=== PATIENT | female | born 1945 | race Caucasian/White ===

== ENCOUNTER 2020-06-11 13:14 | Outpatient (CLI) | payer MEDICARE, SELFPAY ==
--- NOTE | 2020-06-11 13:20 | ECHO_ITS ---
Patient Info Name: Louise Leal Age: 75 years : 1945 Gender: Female Ht: 63 in Wt: 236 lbs BSA: 2.24 m2 HR: 110 bpm BP: 133 / 82 mmHg Heart Rhythm: Sinus Rhythm Technical Quality: Good Exam Date: 06/11/2020 1:36 PM Exam Location: [facility] Pulmonary Patient Status: Outpatient Admit Date: 06/11/2020 Staff Ordering Physician: Anurag Conde DO Program Counselor: Andre Mitchell RDCS Attending Provider: Anurag Conde DO Referring Physician: Elton KULKARNI; Exam Type: CA echo doppler color flow Study Info Indications I50.22 - Chronic systolic (congestive) heart failure Complete two-dimensional, color flow and Doppler transthoracic echocardiogram is performed. History/Risk Factors Chronic systolic heart failure. Summary 1. Complete two-dimensional, color flow and Doppler transthoracic echocardiogram is performed. 2. Left ventricular chamber dimension is mildly enlarged. 3. Left ventricular systolic function is moderately reduced, estimated at 40-45%. 4. The left ventricular diastolic function is grade I diastolic dysfunction. 5. E/e' 9 is minimally elevated. 6. Left atrial chamber dimension is mildly enlarged. 7. There is trace tricuspid valve regurgitation. 8. No pulmonary hypertension, estimated pulmonary arterial systolic pressure is 28 mmHg. Left Ventricle E/e' 9 is minimally elevated. Left ventricular chamber dimension is mildly enlarged. Left ventricular systolic function is moderately reduced, estimated at 40-45%. The left ventricular diastolic function is grade I diastolic dysfunction. Right Ventricle Right ventricular chamber dimension is normal. Right ventricular systolic function is normal. Left Atria Left atrial chamber dimension is mildly enlarged. Right Atria Right atrial chamber dimension is normal. Aortic Valve The aortic valve is trileaflet. There is no aortic valve stenosis. There is no aortic valve regurgitation. Pulmonic Valve There is no pulmonic regurgitation. Mitral Valve There is no mitral valve stenosis. There is no mitral valve regurgitation. Tricuspid Valve There is trace tricuspid valve regurgitation. No pulmonary hypertension, estimated pulmonary arterial systolic pressure is 28 mmHg. Pericardium/Pleural There is no pericardial effusion. Inferior Vena Cava Normal inferior vena cava with >50% collapse upon inspiration consistent with normal right atrial pressure, 5 mmHg. Aorta The aortic root size at the sinus of Valsalva is normal. Left Ventricular Outflow Tract Name Value Normal LVOT 2D LVOT Diameter 2.0 cm LVOT Doppler LVOT Peak Gradient 4 mmHg LVOT Mean Gradient 2 mmHg LVOT VTI 21 cm LVOT VTI/AV VTI Ratio 0.7 LVOT Stroke Volume 65 ml LVOT CO 3.7 l/min LVOT CI 1.6 l/min/m2 Mitral Valve Name Value
== END 2020-06-11 13:15 | disposition home or self-care (01) ==
PROVIDERS: PCP Internal Medicine; Visit Provider Internal Medicine Cardiovascular Disease
DX: I50.22 Chronic systolic (congestive) heart failure (principal)
CPT/HCPCS: 93306

== ENCOUNTER 2021-05-20 10:09 | Outpatient (CLI) | payer MEDICARE, SELFPAY ==
--- NOTE | 2021-05-20 10:35 | ECHO_ITS ---
Patient Info Name: Louise Leal Age: 76 years : 1945 Gender: Female Ht: 63 in Wt: 230 lbs BSA: 2.21 m2 HR: 66 bpm BP: 101 / 57 mmHg Technical Quality: Good Exam Date: 05/20/2021 10:58 AM Exam Location: [facility] Pulmonary Patient Status: Outpatient Admit Date: 05/20/2021 Staff Ordering Physician: Anurag Conde DO Senior Software Qa Analyst: Porsche Ordaz RDCS Attending Provider: Anurag Conde DO Referring Physician: Elton KULKARNI; Exam Type: CA echo doppler color flow Study Info Indications - chronic systolic congestive heart failure Complete two-dimensional, color flow and Doppler transthoracic echocardiogram is performed. Summary 1. Complete two-dimensional, color flow and Doppler transthoracic echocardiogram is performed. 2. Left ventricular chamber dimension is normal. 3. Left ventricular systolic function is mildly reduced, estimated at 45-50%. 4. There is mildly increased left ventricular wall thickness. 5. The left ventricular diastolic function is grade I diastolic dysfunction. 6. E/e' 9 is minimally elevated. 7. Left atrial chamber dimension is mildly enlarged. 8. There is mild tricuspid valve regurgitation. 9. No pulmonary hypertension, estimated pulmonary arterial systolic pressure is 27 mmHg. 10. There is trivial pericardial effusion. Left Ventricle E/e' 9 is minimally elevated. Left ventricular chamber dimension is normal. Left ventricular systolic function is mildly reduced, estimated at 45-50%. There is mildly increased left ventricular wall thickness. The left ventricular diastolic function is grade I diastolic dysfunction. Right Ventricle Right ventricular chamber dimension is normal. Right ventricular systolic function is normal. Left Atria Left atrial chamber dimension is mildly enlarged. Right Atria Right atrial chamber dimension is normal. Aortic Valve The aortic valve is trileaflet. There is no aortic valve stenosis. There is no aortic valve regurgitation. Pulmonic Valve There is no pulmonic regurgitation. Mitral Valve There is no mitral valve stenosis. There is no mitral valve regurgitation. Tricuspid Valve There is mild tricuspid valve regurgitation. No pulmonary hypertension, estimated pulmonary arterial systolic pressure is 27 mmHg. Pericardium/Pleural There is trivial pericardial effusion. Inferior Vena Cava Normal inferior vena cava with >50% collapse upon inspiration consistent with normal right atrial pressure, 5 mmHg. Aorta The aortic root size at the sinus of Valsalva is normal. Left Ventricular Outflow Tract Name Value Normal LVOT 2D LVOT Diameter 2.0 cm LVOT Doppler LVOT Peak Gradient 6 mmHg LVOT Mean Gradient 4 mmHg LVOT VTI 25 cm LVOT VTI/AV VTI Ratio 0.9 LVOT Stroke Volume 75 ml LVOT CO 16.5 l/min LVOT CI 7.4 l/min/m2 Pulmonic Valve Name
== END 2021-05-20 10:10 | disposition home or self-care (01) ==
LOC: ANHCARD 10:10
PROVIDERS: PCP Internal Medicine; Visit Provider Internal Medicine Cardiovascular Disease
DX: I50.22 Chronic systolic (congestive) heart failure (principal); I36.1 Nonrheumatic tricuspid (valve) insufficiency
CPT/HCPCS: 93306

== ENCOUNTER 2022-05-24 08:30 | Outpatient (CLI) | payer MEDICARE, SELFPAY ==
--- NOTE | 2022-05-24 08:39 | ECHO_ITS ---
Patient Info Name: Louise Leal Age: 77 years : 1945 Gender: Female Ht: 63 in Wt: 218 lbs BSA: 2.15 m2 HR: 67 bpm BP: 113 / 85 mmHg Technical Quality: Fair Exam Date: 05/24/2022 9:02 AM Exam Location: [facility] Pulmonary Patient Status: Outpatient Admit Date: 05/24/2022 Staff Ordering Physician: Anurag Conde DO Nut Culler: Gregoria Manrique RDCS Attending Provider: Anurag Conde DO Referring Physician: Elton KULKARNI; Exam Type: CA echo doppler color flow Study Info Indications I50.22 - Chronic systolic (congestive) heart failure Complete two-dimensional, color flow and Doppler transthoracic echocardiogram is performed. Summary 1. Complete two-dimensional, color flow and Doppler transthoracic echocardiogram is performed. 2. Left ventricular chamber dimension is normal. 3. Left ventricular systolic function is mildly reduced, estimated at 45-50%. 4. Left ventricular septal wall motion is abnormal with septal motion related to bundle branch block. 5. The left ventricular diastolic function is grade I diastolic dysfunction. 6. E/e' 12 is mildly elevated. 7. Global longitudinal strain is abnormal at -15.6%. 8. No pulmonary hypertension, estimated pulmonary arterial systolic pressure is 34 mmHg. Left Ventricle E/e' 12 is mildly elevated. Global longitudinal strain is abnormal at -15.6%. Left ventricular chamber dimension is normal. Left ventricular systolic function is mildly reduced, estimated at 45-50%. Left ventricular septal wall motion is abnormal with septal motion related to bundle branch block. The left ventricular diastolic function is grade I diastolic dysfunction. Right Ventricle Right ventricular systolic function is normal and with normal TAPSE 2.9 cm. Right ventricular chamber dimension is normal. Left Atria Left atrial chamber dimension is normal. Right Atria Right atrial chamber dimension is normal. Aortic Valve The aortic valve is trileaflet. There is no aortic valve stenosis. There is no aortic valve regurgitation. Pulmonic Valve There is no pulmonic regurgitation. Mitral Valve There is no mitral valve stenosis. There is no mitral valve regurgitation. Tricuspid Valve There is no tricuspid valve regurgitation. No pulmonary hypertension, estimated pulmonary arterial systolic pressure is 34 mmHg. Pericardium/Pleural There is no pericardial effusion. Inferior Vena Cava Normal inferior vena cava with >50% collapse upon inspiration consistent with normal right atrial pressure, 5 mmHg. Aorta The aortic root size at the sinus of Valsalva is normal. Left Ventricular Outflow Tract Name Value Normal LVOT 2D LVOT Diameter 2.0 cm LVOT Doppler LVOT Peak Gradient 7 mmHg LVOT Mean Gradient 4 mmHg LVOT VTI 28 cm LVOT VTI/AV VTI Ratio 0.9 LVOT Stroke Volume 86 ml LVOT CO 5.3 l/min LVOT CI 2.5 l/min/m2 Pulmonic Valve
== END 2022-05-24 08:31 | disposition home or self-care (01) ==
LOC: ANHCARD 08:35
PROVIDERS: PCP Internal Medicine; Visit Provider Internal Medicine Cardiovascular Disease
DX: I50.22 Chronic systolic (congestive) heart failure (principal)
CPT/HCPCS: 93306

== ENCOUNTER 2023-05-17 16:24 | Inpatient (IN) | payer MEDICARE, SELFPAY ==
[2023-05-17] VITALS (16 sets, daily range): BP systolic 91–129; BP diastolic 59–80; PULSE 69–92; RESP 12–22; TEMP 36.4–36.5; O2SAT 90–100
--- NOTE | ~2023-05-17 | US_ITS ---
EXAMINATION: US renal BI DATE: 05/18/2023 11:36 INDICATION: Acute kidney injury. TECHNIQUE: Multiple ultrasound grayscale images of the kidneys were obtained. COMPARISON: None. FINDINGS: The right kidney measures 9.8 x 4.5 x 5.2 cm. The left kidney measures 9.8 x 4.4 x 5.1 cm. The kidney s demonstrate normal parenchymal echogenicity. There is no hydronephrosis. The bladder is decompresse d by a Forte catheter. IMPRESSION: 1. Normal kidney sizes. No hydronephrosis. Reviewed, dictated and finalized at location A.
--- NOTE | ~2023-05-17 | US_ITS ---
EXAMINATION: US venous doppler [facility] DATE: 05/17/2023 21:20 INDICATION: DVT . TECHNIQUE: Grayscale images without and with compression and Doppler images of the bilateral lower ex tremity veins were obtained. COMPARISON: None FINDINGS: The left common femoral vein, profunda (deep) femoral vein, femoral vein, popliteal vein, peroneal ve in, posterior tibial veins, and gastrocnemius vein are patent. Prior greater saphenous vein ablation, no abnormality detected in the proximal residual portion of the greater saphenous vein. The right common femoral vein, profunda (deep) femoral vein, femoral vein, popliteal vein, peroneal vein, posterior tibial veins, gastrocnemius vein, and greater saphenous vein are patent. IMPRESSION: Patent bilateral lower extremity veins. No evidence of deep venous thrombosis. Reviewed, dictated and finalized at location K.
--- NOTE | ~2023-05-17 | XR_ITS ---
EXAMINATION: XR chest 2V Exam Date/Time: 05/17/2023 16:50 CDT HISTORY: dyspnea Comparison: 09/13/2010. RESULT: Lines, tubes, and devices: None. Lungs and pleura: Mild diffuse reticular opacities. Minimal streaky bibasilar scar/atelectasis. Cardiomediastinal silhouette: Stable. Other: No acute osseous or upper abdominal finding. IMPRESSION: Mild interstitial edema. Reviewed, dictated and finalized at location K. IMPRESSION: Mild interstitial edema.
--- NOTE | 2023-05-17 16:29 | ECG_ITS ---
Measurements Intervals [place] Rate: 75 P: 38 NH: 182 QRS: -40 QRSD: 154 T: 109 QT: 426 QTc: 476 Interpretive Statements SINUS RHYTHM MARKED LEFT AXIS DEVIATION [QRS AXIS < -30] LEFT BUNDLE BRANCH BLOCK [120+ ms QRS DURATION, 80+ ms Q/S IN V1/V2, 85+ ms R IN I/aVL/V5/V6] ABNORMAL ECG NO PREVIOUS ECG AVAILABLE FOR COMPARISON Electronically Signed On 05-18-2023 9:16:44 CDT by Juan R Joaquin M.D.
[2023-05-17 16:55] LABS: Basophils Percent Auto 0.2 % (0.2-1.2); Eosinophils Absolute Auto 0.2 K/mm3 (0-0.3); Eosinophils Percent Auto 3.2 % (0-4.4); Hematocrit 33.1 % (37.0-47.0); Immature Granulocyte Absolute 0.02 K/mm3 (0.00-0.031); Immature Granulocyte Percent A 0.4 % (0-0.5); Lymphocytes Absolute Auto 0.72 K/mm3 (0.9-3.2); Lymphocytes Percent Auto 15.6 % (18.3-44.2); Mean Corpuscular HGB Conc 33.2 g/dl (32-36); Mean Corpuscular Hemoglobin 32.1 pg (26-34); Mean Corpuscular Volume 96.5 fl (80-100); Mean Platelet Volume 10.1 fl (7.4-10.4); Monocytes Absolute Auto 0.6 K/mm3 (0.1-0.6); Monocytes Percent Auto 12.6 % (2.6-8.5); Neutrophils Absolute Auto 3.1 K/mm3 (1.3-6.7); Platelet Count Result 182 k/mm3 (150-375); Red Blood Count 3.43 M/mm3 (4.2-5.4); Red Cell Distribution Width 12.8 % (11.5-14.5); White Blood Count 4.6 K/mm3 (4.5-10.0)
[2023-05-17 17:05] LABS: Alanine Aminotransferase 20 U/L (6-35); Albumin Level 4.1 g/dL (3.5-5.1); Alkaline Phosphatase 56 U/L (38-126); Anion Gap 9 mmol/L (8-16); Aspartate Amino Transferase 22 U/L (14-36); Bilirubin,Total 0.9 mg/dL (0.2-1.3); Blood Urea Nitrogen 71 mg/dL (7-17); Calcium 8.8 mg/dL (8.4-10.2); Carbon Dioxide 25 mmol/L (22-30); Chloride 92 mmol/L (98-107); Estimated Glomerular Filt Rate 18; Glucose 123 mg/dL (65-110); Potassium 3.5 mmol/L (3.4-5.0); Sodium 126 mmol/L (137-145)
[2023-05-17 17:17] LABS: NT Pro B Type Natriuretic Pept 483 pg/mL (19.9-100); Troponin I < 0.012 ng/mL (0.000-0.034)
[2023-05-17 17:20] LABS: Partial Thromboplastin Time 26.2 SECONDS (22.3-36.8); Prothrombin Time 13.1 Seconds (11.1-14.7)
--- NOTE | 2023-05-17 18:47 | ED.GENADULT ---
HPI - General Adult General Chief complaint: Unspecified Stated complaint: BLE edema/low 02 Time Seen by Provider: 05/17/23 18:08 History of Present Illness HPI narrative: Patient is a 78-year-old female with a history of CHF, hyperlipidemia, hypertension presenting with leg swelling. Patient states that she noticed that her legs were becoming increasingly swollen approximately 4 to 5 days ago. States that she takes Bumex every morning and normally is a significant increase in urination shortly after taking it. States that for the last several days she has not been urinating nearly as much as normal. States that she has been taking double her Bumex in the afternoon the last several days without significant urinary output. States that her legs have been increasingly swollen and a home health nurse told her to come in for evaluation today. She denies any chest pain. She denies significant dyspnea. She does complain of generalized weakness. No further complaints. Related Data Home Medications Medication Instructions Recorded Confirmed omega [id number]-fish oil 1,000 mg 2 cap PO DAILY 09/25/19 05/17/23 (120 mg-180 mg) capsule (Fish Oil) docusate sodium 100 mg capsule 100 mg PO DAILY 09/21/21 05/17/23 (Colace) Allergies Allergy/AdvReac Type Severity Reaction Status Date / Time Sulfa (Sulfonamide AdvReac Rash Verified 05/17/23 18:25 Antibiotics) Review of Systems Review of Systems: All systems reviewed & are unremarkable except as noted in HPI and below [facility] Past Medical History Medical History Arthritis CAD (coronary artery disease) Chronic kidney disease, stage IV (severe) Chronic systolic heart failure Elevated lipids Essential (primary) hypertension Gastroesophageal reflux disease Inflammatory arthritis LBBB (left bundle branch block) ROBERT on CPAP Other hyperlipidemia Postmenopausal Screening for breast cancer Skin lesion Surgical History Surgical History Hx of knee surgery Family History Family History (Updated 05/17/23 @ 23:01 by Jose Eduardo Lorenzo RN) Father Diabetes mellitus Family history of diabetes mellitus in first degree relative Social History Social History Smoking packs per day: 1 Smoking cigarettes per day: 20.0 Years smoked: 3 Smoking pack-years: 3.00 Smoking status: Former smoker Tobacco type: cigarettes Second hand tobacco smoke exposure: No Alcohol intake: former Substance use: never Lack of Transportation: No Lack of Food: Never True Current Housing: I Have Housing Concerned About Future Housing: No Difficulty Paying Gas/Electric Bills: No Difficulty Paying for Meds: No Currently Unemployed: No Education: Grade School Difficulty w/ Childcare or Family Care: No Living arrangements: with family Occupation/Education: retired Gender identity (if verbalized by the patient): Female Spiritual care concerns: No Exam Narrative: GENERAL: Well-appearing, well-nourished, and in no acute distress. HEAD: Normocephalic, atraumatic. EYES: PERRLA and EOMI. ENT: Nares clear, no rhinorrhea or epistaxis. Mucous membranes moist. NECK: Supple. CHEST: Clear to auscultation. No respiratory distress. HEART: Regular rate and rhythm. Normal peripheral pulses. ABDOMEN: Soft, nontender, nondistended EXTREMITIES: Normal range of motion. 3+ pitting edema up to her thighs SKIN: Warm, dry, no rash. NEURO: No focal deficits. Alert and oriented x3. PSYCH: Normal mood and affect. Course Vital Signs Vital signs: Vital Signs Temperature 97.7 F 05/17/23 16:26 Pulse Rate 78 05/17/23 16:26 Respiratory Rate 18 05/17/23 16:26 Blood Pressure 129/59 L 05/17/23 16:26 Pulse Oximetry 97 05/17/23 16:26 Oxygen Delivery Room Air 05/17/23 16:26 Temperature
[2023-05-17] MEDS: BUMETANIDE INJ 1 MG/4 ML VIAL 2 MG IV PUSH (19:16)
[2023-05-17 20:04] LABS: Troponin I < 0.012 ng/mL (0.000-0.034)
--- NOTE | 2023-05-17 20:05 | PM.IMHP ---
H&P: HPI History of Present Illness Date/Time: 05/17/23 20:05 Chief Complaint: bilateral lower extremity swelling Narrative: This is 78-year-old female with past medical history significant for coronary artery disease, chronic kidney disease, chronic systolic heart failure, hypertension, GERD, obstructive sleep apnea on CPAP, obesity. patient presents to the emergency room due to bilateral lower extremity swelling worsening now for the last week or so with blistering, patient decided to doubled her bumetanide daily taking 1 in the morning and 1 in the evening. Patient denies any PND, orthopnea, shortness of breath, cough, sputum production, chest pain, palpitations, dizziness, lightheadedness, syncope, near syncope, no nausea no vomiting no diarrhea no abdominal pain. Preliminary workup was significant for a creatinine of 2.6, sodium 126 chloride 92 BUN 71. A chest x-ray was reported as: EXAMINATION:? XR chest 2V Exam Date/Time:? 05/17/2023 16:50 CDT HISTORY: dyspnea ? Comparison:? 09/13/2010. RESULT: Lines, tubes, and devices:? None. Lungs and pleura:? Mild diffuse reticular opacities. Minimal streaky bibasilar scar/atelectasis. Cardiomediastinal silhouette:? Stable. Other:? No acute osseous or upper abdominal finding. ? IMPRESSION: Mild interstitial edema. EXAMINATION: US venous doppler LE DATE: 05/17/2023 21:20 INDICATION: DVT . TECHNIQUE: Grayscale images without and with compression and Doppler images of the bilateral lower extremity veins were obtained. COMPARISON: None FINDINGS: The left common femoral vein, profunda (deep) femoral vein, femoral vein, popliteal vein, peroneal vein, posterior tibial veins, and gastrocnemius vein are patent. Prior greater saphenous vein ablation, no abnormality detected in the proximal residual portion of the greater saphenous vein. The right common femoral vein, profunda (deep)? femoral vein, femoral vein, popliteal vein, peroneal vein, posterior tibial veins, gastrocnemius vein, and greater saphenous vein are patent. IMPRESSION: Patent bilateral lower extremity veins. No evidence of deep venous thrombosis. patient is been admitted for further evaluation management and treatment. Review of Systems Review of Systems: Worsening of a lateral lower extremity edema, blistering. Constitutional: Constitutional: Denies chills, Denies fatigue, Denies fever(s), Denies frequent falls, Denies malaise, Denies night sweats, Denies poor appetite and Denies weakness Eyes: Eyes: Denies change in vision ENT: Denies dysphagia, Denies vertigo, Denies dizziness and Denies odynophagia Cardiovascular: Cardiovascular: Denies chest pain, Reports leg edema, Denies radiating jaw, neck or arm pain, Denies dyspnea on exertion, Denies orthopnea and Denies paroxysmal nocturnal dyspnea Respiratory: Respiratory: Denies cough, Denies excessive phlegm production, Denies dyspnea and Denies wheezing Gastrointestinal: Gastrointestinal: Denies abdominal pain, Denies dyspepsia, Denies heartburn, Denies diarrhea, Denies nausea and Denies vomiting Genitourinary: Genitourinary: Denies dysuria Musculoskeletal: Musculoskeletal: Denies myalgias, Denies arthralgias, Denies joint swelling and Denies limited range of motion Integumentary/Breasts: Skin/Breast: Reports other ( Bilateral lower extremity blisters) Neurologic: Denies vertigo, Denies dizziness, Denies focal weakness, Denies Sensory deficit (Neuro) and Denies weakness Psychiatric: Psychiatric: Reports no additional psychiatric complaints and Reports as per HPI Endocrine: Endocrine: Denies cold intolerance, Denies fatigue, Denies flushing, Denies heat intolerance, Denies polyphagia, Denies polydipsia and Denies palpitations Hematologic/Lymphatic: Hematologic/Lymphatic: Reports no additional hematologic/lymphatic complaints and Reports as per HPI Allergic/Immunologic: Allergic/Immunologic: Reports no additional allergic/immunologic compl
[2023-05-17 20:47] LABS: Appearance Urine Clear (Clear); Bacteria Urine 3+ /hpf; Bilirubin Urine Negative (Negative); Blood Urine Negative (Negative); Color Urine Yellow (Yellow); Glucose Urine UA 1+ mg/dL (Negative); Ketones Urine Negative (Negative); Leukocyte Esterase Ur 1+ LEU/UL (Negative); Need Manual Microscopic Reviewed; Nitrate Urine Negative (Negative); Protein Urine Negative (Negative); RBC Urine 0-2 /hpf (0-2); Specific Grav Ur 1.006 (1.001-1.035); Squamous Epithelial Cell Urine None seen /hpf (Few); Urobilinogen Urine 0.2 mg/dL (<2.0); WBC Urine 0-5 /hpf; pH Urine 5.5 (5.0-9.0)
[2023-05-17 21:03] LABS: Add Urine Microscopic? YES
--- NOTE | 2023-05-17 23:03 | ADMGEN ---
This patient, Louise Leal, was admitted to [facility] Surg Room 302-01. Patient/family oriented to hospital policies and general routines including ID bracelet, bed and alarms, visiting hours, pain management, procedures, bathroom and other care routines, personal items, smoking policy, room service/diet, and visiting hours. Information on how to activate the Rapid Response Team has been discussed. Patient/Family are encouraged to report perceived risks to care and to ask questions if they do not understand what they are told or what they should do.
[2023-05-18] VITALS (11 sets, daily range): BP systolic 105–120; BP diastolic 54–65; PULSE 66–94; RESP 14–19; TEMP 35.7–37.1; O2SAT 90–95
--- NOTE | 2023-05-18 | ECHO_ITS ---
Patient Info Name: Louise Leal Age: 78 years : 1945 Gender: Female Ht: 63 in Wt: 224 lbs BSA: 2.18 m2 HR: 78 bpm BP: 110 / 54 mmHg Heart Rhythm: Sinus Rhythm Technical Quality: Good Exam Date: 05/18/2023 9:42 AM Exam Location: [facility] Card Pulmonary Patient Status: Inpatient Admit Date: 05/17/2023 Staff Ordering Physician: Suzi Alvarado MD Content Editor: Doroteo Pressley RDCS Attending Provider: Suzi Alvarado MD Referring Physician: Jenny RIVERA; Exam Type: CA echo doppler color flow Study Info Indications - LEG SWELLING Complete two-dimensional, color flow and Doppler transthoracic echocardiogram is performed. Summary 1. Complete two-dimensional, color flow and Doppler transthoracic echocardiogram is performed. 2. Left ventricular chamber dimension is normal. 3. Left ventricular systolic function is normal, estimated at 60-65%. 4. Left ventricular septal wall motion is abnormal with septal motion related to bundle branch block. 5. The left ventricular diastolic function is grade I diastolic dysfunction. 6. E/e' 14 is mildly elevated. 7. Left atrial chamber dimension is mildly enlarged. 8. There is trace tricuspid valve regurgitation. 9. No pulmonary hypertension, estimated pulmonary arterial systolic pressure is 38 mmHg. Left Ventricle E/e' 14 is mildly elevated. Left ventricular chamber dimension is normal. Left ventricular systolic function is normal, estimated at 60-65%. Left ventricular septal wall motion is abnormal with septal motion related to bundle branch block. The left ventricular diastolic function is grade I diastolic dysfunction. Right Ventricle Right ventricular systolic function is normal and with normal TAPSE 3.0 cm. Right ventricular chamber dimension is normal. Left Atria Left atrial chamber dimension is mildly enlarged. Right Atria Right atrial chamber dimension is normal. Aortic Valve The aortic valve is trileaflet. There is no aortic valve stenosis. There is no aortic valve regurgitation. Pulmonic Valve There is no pulmonic regurgitation. Mitral Valve There is no mitral valve stenosis. There is no mitral valve regurgitation. Tricuspid Valve There is trace tricuspid valve regurgitation. No pulmonary hypertension, estimated pulmonary arterial systolic pressure is 38 mmHg. Pericardium/Pleural There is no pericardial effusion. Inferior Vena Cava Normal inferior vena cava with >50% collapse upon inspiration consistent with normal right atrial pressure, 5 mmHg. Aorta The aortic root size at the sinus of Valsalva is normal. Left Ventricular Outflow Tract Name Value Normal LVOT 2D LVOT Diameter 1.8 cm LVOT Doppler LVOT Peak Gradient 4 mmHg LVOT Mean Gradient 2 mmHg LVOT VTI 31 cm LVOT VTI/AV VTI Ratio 1.0 LVOT Stroke Volume 78 ml LVOT CO 6.3 l/min LVOT CI 2.9 l/min/m2 Pulmonic Valve Name Value Normal
[2023-05-18 00:09] LABS: Troponin I < 0.012 ng/mL (0.000-0.034)
[2023-05-18] MEDS: SODIUM CHLORIDE 0.9% IV 1,000 ML 75 ML IV CONT (02:05)
--- NOTE | 2023-05-18 09:16 | PM.CNCAR ---
Assessment and Plan Assessment and plan (1) Swelling of both lower extremities: Code(s): M79.89 - Other specified soft tissue disorders Status: Acute Assessment and Plan: Mild only. (2) Chronic systolic heart failure: Code(s): I50.22 - Chronic systolic (congestive) heart failure Status: Acute Assessment and Plan: Appears euvolemic. Obtain echo. (3) CAD (coronary artery disease): Code(s): I25.10 - Atherosclerotic heart disease of [place] coronary artery without angina pectoris Status: Acute Assessment and Plan: Stable. (4) LBBB (left bundle branch block): Code(s): I44.7 - Left bundle-branch block, unspecified Status: Acute (5) Hypertension: Qualifiers: Hypertension type: primary hypertension Qualified Code(s): I10 - Essential (primary) hypertension Code(s): I10 - Essential (primary) hypertension Status: Acute Assessment and Plan: Stable. (6) Morbid obesity with BMI of 40.0-44.9, adult: Code(s): E66.01 - Morbid (severe) obesity due to excess calories; Z68.41 - Body mass index [BMI] 40.0-44.9, adult Status: Acute (7) Acute on chronic kidney failure: Code(s): N17.9 - Acute kidney failure, unspecified; N18.9 - Chronic kidney disease, unspecified Status: Acute Assessment and Plan: Nephrology consulted. Entresto, Spironolactone, Bumetanide all on hold for now. She is even receiving IVF at 75 ml/hr. History of Present Illness History of Present Illness Consult date/time: 05/18/23 09:16 Reason For Visit: chf exacerbation Narrative: Patient is a 78 yr old woman who is my regular cardiology patient presents to ER for edema of legs. She has a history of hypertension, dyslipidemia, CKD, ROBERT on CPAP, chronic systolic heart failure (EF was 30-35% as far back as 2015. Was not on beta larry or Jones inh/ARB until Sep 2018), LBBB, obesity, covid infection on 09/06/21. Reports she noted more edema of legs and blistering of right lower leg that she increased her Bumex to twice daily. However, she did not urinate as much with this increase and it concerned her so she came in to ER. She is limited at walking 1 block due to chronic back and hip pain with a walker or cane.? Denies chest pain.? Denies orthopnea, palpitations, dizziness. Cardiovascular Procedures Stretcher Operator:: Cath ([facility]: LAD mid 60-65% stenosis, LCx 20% mid.) - 08/26/2016 Echo/MUGA:: 05/10/22 Echo: EF 45-50%, grade I diastolic dysfunction (E/e' 12). 05/20/21 Echo: EF 45-50%, mild LVH, grade I diastolic dysfunction (E/e' 9), mild LAE, mild TR, trace pericardial effusion. 06/11/20 Echo: EF 40-45%, mild LVE, grade I diastolic dysfunction (E/e' 9), mild LAE, trace TR. Echo (EF 35-40%, mod LVE, mod LV systolic dysfunction, grade I diastolic dysfunction (E/E' 11), mild MR, trace TR, trace pericardial effusion.) - 01/02/2019 Echo ([facility]: EF 25-30%, septal hypokinesis, mod LVE, upper limit of normal LAE, trace-mild MR/PI, mild TR.) - 10/04/2018 Echo (Dr. Christianson progress note: EF 30-35%, anterior and septal hypokinesis.) - 08/2016 Electrophysiology:: EKG (Sinus rhythm, LBBB.) - 08/26/2016 Venous Duplex (No DVT of bilateral legs.) - 10/04/2018 Sleep Study (Severe ROBERT with desaturation to 63%.) - 01/08/2019 Stress Tests:: 09/11/21 Carotid duplex: <50% ICA bilateral. Review of Systems Review of Systems: All systems reviewed & are unremarkable except as noted in HPI and below Constitutional: Constitutional: Reports as per HPI, Denies chills and Denies fever(s) Cardiovascular: Cardiovascular: Reports as per HPI, Denies chest pain, Denies irregular heart rhythm, Reports leg edema and Denies lightheadedness Respiratory: Respiratory: Reports as per HPI and Denies dyspnea Gastrointestinal: Gastrointestinal: Reports as per HPI and Denies abdominal pain Genitourinary: Genitourinary: Reports as per HPI and Denies dysuria Musculoskeletal: Musculosk
[2023-05-18] MEDS: DOCUSATE SODIUM 100 MG CAPSULE PO (09:18)
[2023-05-18] MEDS: ROSUVASTATIN 10 MG TABLET BY MOUTH (09:18)
[2023-05-18] MEDS: carvediloL 6.25 MG TABLET BY MOUTH ×2 (09:19→21:10)
[2023-05-18] MEDS: PANTOPRAZOLE 40 MG TABLET PO (09:19)
[2023-05-18] MEDS: GABAPENTIN 300 MG CAPSULE PO ×2 (09:19→17:46)
[2023-05-18 11:03] LABS: Albumin Level 3.6 g/dL (3.5-5.1); Anion Gap 7 mmol/L (8-16); Blood Urea Nitrogen 53 mg/dL (7-17); Calcium 8.7 mg/dL (8.4-10.2); Carbon Dioxide 29 mmol/L (22-30); Chloride 99 mmol/L (98-107); Creatine Kinase 64 U/L (30-135); Estimated Glomerular Filt Rate 27; Glucose 152 mg/dL (65-110); Phosphorus 3.6 mg/dL (2.5-4.5); Sodium 135 mmol/L (137-145)
--- NOTE | 2023-05-18 12:01 | PM.CNNEP ---
Assessment and Plan Assessment and plan (1) Acute renal injury: Code(s): N17.9 - Acute kidney failure, unspecified Status: Acute Assessment and Plan: felt to be secondary to overdiuresis improvement in creatinine with IVF hydration would support this follow-up on renal ultrasound check CPK, urine electrolytes, and urine eosinophils agree with holding entresto and diuretics follow repeat labs and UOP (2) Stage 3b chronic kidney disease: Code(s): N18.32 - Chronic kidney disease, stage 3b Status: Chronic Assessment and Plan: mutifactorial etiology: non-ischemic cardiomyopathy chronic NSAID use chronic diuretic therapy use of Entresto baseline creatinine seems to run ~ 1.6 - 1.8mg/dl in the last few years (although has been as high as 2.1mg/dl) follows with Dr. Juan R Harper for CKD management (3) Swelling of both lower extremities: Code(s): M79.89 - Other specified soft tissue disorders Status: Acute Assessment and Plan: appears fairly mild at this time conservative therapy (4) Chronic systolic heart failure: Code(s): I50.22 - Chronic systolic (congestive) heart failure Status: Chronic Assessment and Plan: seems compensated at this time Cardiology following (5) Hypertension: Qualifiers: Hypertension type: primary hypertension Qualified Code(s): I10 - Essential (primary) hypertension Code(s): I10 - Essential (primary) hypertension Status: Chronic Assessment and Plan: reasonable control at this time follow trend of hemodynamics I will continue to follow the patient with you while she remains hospitalized and make further recommendations as needed. Thank you for allowing me to participate in the care of this patient. History of Present Illness Reason for Consult Consult date: 05/18/23 Reason for consult: acute renal failure (on chronic kidney disease) Chief Complaint Chief complaint: chf exacerbation History of Present Illness Narrative: The patient is a 78-year-old female with a past medical history as outlined below who presented to [facility] Emergency room with complaints of lower extremity edema and decreased urine output. The patient reports that for the last several days she has not been urinating as much as she usually does. Usually, when she takes her dose of Bumex, there is a significant increase in urine output but she has not noticed this recently. Unfortunately, due to increasing lower extremity swelling and edema, she doubled up her Bumex in the hopes that this would improve her urine output and help with her swelling but this did not occur. She does have a home health nurse that comes visit her and when she related this history in conjunction with her worsening lower extremity swelling, she encouraged the patient to come to the emergency room for further assessment. Workup and evaluation emergency room demonstrated the patient to be in no acute distress and was hemodynamically stable. She gave no other clinical symptoms with regard to chest pain, shortness of breath, nausea, vomiting, diarrhea, palpitations or lightheadedness but did complain some generalized weakness. Routine blood test demonstrated evidence of acute kidney injury on top of her baseline kidney disease along with acute hyponatremia. Initially, the ER gave the patient IV diuretics which did improve her urine output. After noting her acute kidney injury, she was admitted to the hospital for further evaluation and therapy and was started on IV fluids with discontinuation of her diuretics as well as and dressed 0 on the assumption this was to blame for her worsening kidney function. Since her admission, repeat labs show a marked improvement in her renal function as well as her sodium level . Her IV fluids are being tapered off because of this improvement in general. Renal consultation was reques
--- NOTE | 2023-05-18 13:54 | PM.IMPN ---
Progress Note: A&P Assessment and Plan (1) Swelling of both lower extremities: Code(s): M79.89 - Other specified soft tissue disorders Status: Acute Assessment and Plan: venous Doppler with no acute DVT wound care consult Continue wraps in hospital (2) Acute hyponatremia: Code(s): E87.1 - Hypo-osmolality and hyponatremia Status: Acute Assessment and Plan: sodium is 135 holding spironolactone holding Bumex (3) Elevated lipids: Code(s): E78.5 - Hyperlipidemia, unspecified Status: Acute (4) Chronic systolic heart failure: Code(s): I50.22 - Chronic systolic (congestive) heart failure Status: Acute Assessment and Plan: patient with no signs of congestive heart failure exacerbation BNP is 400 will repeat echocardiogram in a.m. (5) CAD (coronary artery disease): Code(s): I25.10 - Atherosclerotic heart disease of [place] coronary artery without angina pectoris Status: Acute Assessment and Plan: chest pain-free (6) Acute on chronic kidney failure: Code(s): N17.9 - Acute kidney failure, unspecified; N18.9 - Chronic kidney disease, unspecified Status: Acute Assessment and Plan: sodium 135, potassium is 3 and creat is 1.8 nephrology consult holding Bumex holding Entresto holding spironolactone (7) ROBERT on CPAP: Code(s): G47.33 - Obstructive sleep apnea (adult) (pediatric); Z99.89 - Dependence on other enabling machines and devices Status: Acute Assessment and Plan: continue CPAP at nighttime (8) Morbid obesity with BMI of 40.0-44.9, adult: Code(s): E66.01 - Morbid (severe) obesity due to excess calories; Z68.41 - Body mass index [BMI] 40.0-44.9, adult Status: Acute Assessment and Plan: calorie restricted diet (9) Gastroesophageal reflux disease: Code(s): K21.9 - Gastro-esophageal reflux disease without esophagitis Status: Acute Assessment and Plan: PPI (10) Chronic low back pain with left-sided sciatica: Code(s): M54.42 - Lumbago with sciatica, left side; G89.29 - Other chronic pain Status: Acute Assessment and Plan: Tylenol as needed Subjective Date/time seen: 05/18/23 13:54 Interval history: 78-year-old female with past medical history significant for coronary artery disease, chronic kidney disease, chronic systolic heart failure, hypertension, GERD, obstructive sleep apnea on CPAP, obesity. patient presents to the emergency room due to bilateral lower extremity swelling worsening now for the last week or so with blistering, patient decided to doubled her bumetanide daily taking 1 in the morning and 1 in the evening. Pt is on fluids for OMAR and diuretics are on hold Nephrology and cardiology consulted Pt awaiting to have renal us today. Review of Systems Review of Systems: Ongoing leg swelling Exam Const: General: cooperative, healthy appearing, comfortable and obese Resp: Auscultation: clear to auscultation bilaterally, no crackles, no rales, no rhonchi and no wheezes Cardio: Rate: regular rate Rhythm: regular rhythm Heart sounds: no murmurs Peripheral pulses: dorsalis pedis present GI: GI Palp: No abdominal tenderness and Yes Soft to palpation Neuro: General: oriented to person, oriented to place and oriented to time Extrem: Right lower extremity: edema Left lower extremity: edema Other: Mild edema of both legs with resolving blisters on right lower leg Objective Data Vital Signs Vital Signs: Vital Signs - 24 hr 05/17/23 16:26 05/17/23 18:38 05/17/23 18:23 Temperature 36.5 C Pulse Rate 78 74 Respiratory Rate 18 16 Blood Pressure 129/59 L 102/71 Pulse Oximetry 97 97 90 Oxygen Delivery Room Air Room Air 05/17/23 18:30 05/17/23 18:31 05/17/23 18:32 Temperature Pulse Rate 71 69 72 Respiratory Rate 15 18 16 Blood Pressure Pulse Oximetry 100 97 94 Oxygen
[2023-05-18 15:47] LABS: Anion Gap 2 mmol/L (8-16); Blood Urea Nitrogen 49 mg/dL (7-17); Calcium 8.8 mg/dL (8.4-10.2); Carbon Dioxide 29 mmol/L (22-30); Chloride 103 mmol/L (98-107); Estimated Glomerular Filt Rate 34; Glucose 154 mg/dL (65-110); Potassium 3.1 mmol/L (3.4-5.0); Sodium 134 mmol/L (137-145)
[2023-05-18 22:49] LABS: Creatinine Urine 66.2 mg/dL; Total Protein Urine Random 13 mg/dL; Urea Random Urine 753 MG/DL
[2023-05-18 22:50] LABS: Sodium Urine Random 14 meq/L
[2023-05-18 23:16] LABS: Eosinophil Urine None Seen % (None Seen); Urine Eos QC 2nd Tech Confirmed
[2023-05-19] VITALS (9 sets, daily range): BP systolic 121–140; BP diastolic 57–73; PULSE 70–81; RESP 16–19; TEMP 36.4–36.6; O2SAT 90–95
--- NOTE | 2023-05-19 01:41 | PCRCNOTE ---
pt refused a hospital CPAP unit, states she wiol wear hers when she gets home.
--- NOTE | 2023-05-19 07:49 | PM.PNCARD ---
Progress Note: A&P Assessment and Plan (1) Swelling of both lower extremities: Code(s): M79.89 - Other specified soft tissue disorders Status: Acute Assessment and Plan: Due to diastolic dysfunction. Trace to resolved. Hold off on Bumetanide at this time. Limit fluid intake to 2 liters/day. (2) Chronic systolic heart failure: Code(s): I50.22 - Chronic systolic (congestive) heart failure Status: Acute Assessment and Plan: NICM resolved due to Entresto, carvedilol, Jardiance. Appears euvolemic. 05/18/23 Echo: EF 60-65%, grade I diastolic dysfunction (E/e' 14), mild LAE, trace TR. Due to low normal BP and to prevent recurrence of NICM, would lower her Entresto dose and lower carvedilol dose. Would not restart Spironolactone at this time. May d/c home from cardiology standpoint. Have her f/u with me in 1-2 weeks. (3) CAD (coronary artery disease): Code(s): I25.10 - Atherosclerotic heart disease of [place] coronary artery without angina pectoris Status: Acute Assessment and Plan: Stable. (4) LBBB (left bundle branch block): Code(s): I44.7 - Left bundle-branch block, unspecified Status: Acute (5) Hypertension: Qualifiers: Hypertension type: primary hypertension Qualified Code(s): I10 - Essential (primary) hypertension Code(s): I10 - Essential (primary) hypertension Status: Acute Assessment and Plan: Stable. (6) Morbid obesity with BMI of 40.0-44.9, adult: Code(s): E66.01 - Morbid (severe) obesity due to excess calories; Z68.41 - Body mass index [BMI] 40.0-44.9, adult Status: Acute (7) Acute on chronic kidney failure: Code(s): N17.9 - Acute kidney failure, unspecified; N18.9 - Chronic kidney disease, unspecified Status: Acute Assessment and Plan: Nephrology consulted. Subjective Date/time seen: 05/19/23 07:49 Interval history: Denies chest pain or sob. Exam Const: General: cooperative, healthy appearing, comfortable and obese Nutritional Appearance: obese Orientation/consciousness: oriented to person, oriented to place and oriented to time Resp: Auscultation: clear to auscultation bilaterally, no crackles, no rales, no rhonchi and no wheezes Cardio: Rate: regular rate Rhythm: regular rhythm Heart sounds: no murmurs Peripheral pulses: dorsalis pedis present Neuro: General: oriented to person, oriented to place and oriented to time Extrem: Right lower extremity: no edema Left lower extremity: no edema Objective Data Vital Signs Vital Signs: Vital Signs - 24 hr 05/18/23 09:19 05/18/23 09:19 05/18/23 14:00 Temperature 97.8 F Pulse Rate 84 85 Respiratory Rate 19 Blood Pressure 120/63 Pulse Oximetry 94 Oxygen Delivery Room Air 05/18/23 08:01 05/18/23 12:03 05/18/23 16:01 Temperature Pulse Rate 66 69 85 Respiratory Rate Blood Pressure Pulse Oximetry Oxygen Delivery 05/18/23 21:10 05/18/23 22:00 05/18/23 20:00 Temperature 98.8 F Pulse Rate 92 90 Respiratory Rate 16 Blood Pressure 105/65 Pulse Oximetry 90 Oxygen Delivery Room Air 05/19/23 06:00 05/18/23 20:00 05/19/23 00:00 Temperature 97.8 F Pulse Rate 73 94 76 Respiratory Rate 16 Blood Pressure 140/57 L Pulse Oximetry 90 Oxygen Delivery 05/19/23 04:00 Temperature Pulse Rate 70 Respiratory Rate Blood Pressure Pulse Oximetry Oxygen Delivery Intake/Output Intake/Output: Intake & Output 05/16/23 05/17/23 05/18/23 05/19/23 23:59 23:59 23:59 23:59 Intake Total 1340 Output Total 3770 Balance -2430 Meds/Results Medications: Active Medications Generic Name Dose Route Start Last Admin Trade Name Freq PRN Reason Stop Dose Admin Hydrocodone Bitart/Acetaminophen 1 tab 05/18/23 01:33 Hydrocodone/Acetaminophen (*Crx) 5-325 Mg Tablet PO TID PRN pain Carvedilol 6.25 mg 05/18/23 09:00 05/18/23
[2023-05-19 08:26] LABS: Albumin Level 3.6 g/dL (3.5-5.1); Anion Gap 5 mmol/L (8-16); Blood Urea Nitrogen 33 mg/dL (7-17); Calcium 8.8 mg/dL (8.4-10.2); Carbon Dioxide 30 mmol/L (22-30); Chloride 103 mmol/L (98-107); Estimated Glomerular Filt Rate 40; Glucose 104 mg/dL (65-110); Potassium 3.4 mmol/L (3.4-5.0); Sodium 138 mmol/L (137-145)
[2023-05-19] MEDS: SACUBITRIL/VALSARTAN 12-13 MG TABLET 1 TAB PO (10:01)
[2023-05-19] MEDS: carvediloL 3.125 MG TABLET PO (10:01)
[2023-05-19] MEDS: GABAPENTIN 300 MG CAPSULE PO (10:03)
[2023-05-19] MEDS: PANTOPRAZOLE 40 MG TABLET PO (10:03)
[2023-05-19] MEDS: DOCUSATE SODIUM 100 MG CAPSULE PO (10:03)
[2023-05-19] MEDS: ROSUVASTATIN 10 MG TABLET BY MOUTH (10:03)
[2023-05-19] MEDS: POTASSIUM CHLORIDE 20 MEQ PACKET (FOR LIQUID) 40 MEQ PO (10:06)
--- NOTE | 2023-05-19 12:32 | P.PNNP_ITS ---
Progress Note: A&P Assessment and Plan (1) Acute renal injury: Code(s): N17.9 - Acute kidney failure, unspecified Status: Acute Assessment and Plan: * resolved * felt to be secondary to overdiuresis * improvement in creatinine with IVF hydration would support this * evaluation to date: * renal ultrasound okay * urine electrolytes prerenal * urine eosinophils negative * CPK okay * agree with holding entresto and diuretics but will likely need to restart soon after discharge given #4 * follow repeat labs and UOP (2) Stage 3b chronic kidney disease: Code(s): N18.32 - Chronic kidney disease, stage 3b Status: Chronic Assessment and Plan: * mutifactorial etiology: * non-ischemic cardiomyopathy * chronic NSAID use * chronic diuretic therapy * use of Entresto * baseline creatinine seems to run ~ 1.6 - 1.8mg/dl in the last few years (although has been as high as 2.1mg/dl) * follows with Dr. Juan R Harper for CKD management (3) Swelling of both lower extremities: Code(s): M79.89 - Other specified soft tissue disorders Status: Acute Assessment and Plan: * appears fairly mild at this time * conservative therapy (4) Chronic systolic heart failure: Code(s): I50.22 - Chronic systolic (congestive) heart failure Status: Chronic Assessment and Plan: * seems compensated at this time * Cardiology following * resuming entresto at lower dose...would resume bumex a few days after discharge (5) Hypertension: Qualifiers: Hypertension type: primary hypertension Qualified Code(s): I10 - Essential (primary) hypertension Code(s): I10 - Essential (primary) hypertension Status: Chronic Assessment and Plan: * reasonable control at this time * follow trend of hemodynamics Not opposed to discharge from renal perspective if otherwise medically stable -- will continue to follow. Subjective Date/time seen: 05/19/23 12:32 Interval history: Follow-up for acute kidney injury/acute renal failure on chronic kidney disease. Renal function has improved significantly and is better than baseline at this time; no apparent distress voiced at the time of my visit; no other issues/even ts overnight or earlier this morning; overall, feels a great deal better in general. Exam Narrative: General: WD/WN female in NAD Heart: normal S1 and S2; no rub Lungs: clear to auscultation Abdomen: soft, nontender, nondistended, positive bowel sounds Extremities: no cyanosis or clubbing; trace edema Skin: warm and dry Objective Data Vital Signs Vital Signs: Vital Signs Temp Pulse Resp BP Pulse Ox O2 Del Method 05/19/23 10:03 Room Air 05/19/23 10:01 81 05/19/23 08:20 95 Room Air 05/19/23 04:00 70 05/19/23 00:00 76 05/18/23 20:00 94 05/19/23 06:00 97.8 F 73 16 140/57 L 90 05/18/23 20:00 Room Air 05/18/23 22:00 98.8 F 90 16 105/65 90 05/18/23 21:10 92 05/18/23 16:01 85 05/18/23 14:00 97.8 F 85 19 120/63 94 Intake/Output Intake/Output: Intake & Output 05/16/23 05/17/23 05/18/23 05/19/23 23:59 23:59 23:59 23:59 Intake Tota
--- NOTE | 2023-05-19 12:32 | PM.PNNEP ---
Progress Note: A&P Assessment and Plan (1) Acute renal injury: Code(s): N17.9 - Acute kidney failure, unspecified Status: Acute Assessment and Plan: resolved felt to be secondary to overdiuresis improvement in creatinine with IVF hydration would support this evaluation to date: renal ultrasound okay urine electrolytes prerenal urine eosinophils negative CPK okay agree with holding entresto and diuretics but will likely need to restart soon after discharge given #4 follow repeat labs and UOP (2) Stage 3b chronic kidney disease: Code(s): N18.32 - Chronic kidney disease, stage 3b Status: Chronic Assessment and Plan: mutifactorial etiology: non-ischemic cardiomyopathy chronic NSAID use chronic diuretic therapy use of Entresto baseline creatinine seems to run ~ 1.6 - 1.8mg/dl in the last few years (although has been as high as 2.1mg/dl) follows with Dr. Juan R Harper for CKD management (3) Swelling of both lower extremities: Code(s): M79.89 - Other specified soft tissue disorders Status: Acute Assessment and Plan: appears fairly mild at this time conservative therapy (4) Chronic systolic heart failure: Code(s): I50.22 - Chronic systolic (congestive) heart failure Status: Chronic Assessment and Plan: seems compensated at this time Cardiology following resuming entresto at lower dose...would resume bumex a few days after discharge (5) Hypertension: Qualifiers: Hypertension type: primary hypertension Qualified Code(s): I10 - Essential (primary) hypertension Code(s): I10 - Essential (primary) hypertension Status: Chronic Assessment and Plan: reasonable control at this time follow trend of hemodynamics Not opposed to discharge from renal perspective if otherwise medically stable -- will continue to follow. Subjective Date/time seen: 05/19/23 12:32 Interval history: Follow-up for acute kidney injury/acute renal failure on chronic kidney disease. Renal function has improved significantly and is better than baseline at this time; no apparent distress voiced at the time of my visit; no other issues/events overnight or earlier this morning; overall, feels a great deal better in general. Exam Narrative: General: WD/WN female in NAD Heart: normal S1 and S2; no rub Lungs: clear to auscultation Abdomen: soft, nontender, nondistended, positive bowel sounds Extremities: no cyanosis or clubbing; trace edema Skin: warm and dry Objective Data Vital Signs Vital Signs: Vital Signs Temp Pulse Resp BP Pulse Ox O2 Del Method 05/19/23 10:03 Room Air 05/19/23 10:01 81 05/19/23 08:20 95 Room Air 05/19/23 04:00 70 05/19/23 00:00 76 05/18/23 20:00 94 05/19/23 06:00 97.8 F 73 16 140/57 L 90 05/18/23 20:00 Room Air 05/18/23 22:00 98.8 F 90 16 105/65 90 05/18/23 21:10 92 05/18/23 16:01 85 05/18/23 14:00 97.8 F 85 19 120/63 94 Intake/Output Intake/Output: Intake & Output 05/16/23 05/17/23 05/18/23 05/19/23 23:59 23:59 23:59 23:59 Intake Total 1340 240 Output Total 3770 Balance -2430 240 Meds/Results Medications: Active Medications Generic Name Dose Route Start Last Admin Trade Name Freq PRN Reason Stop Dose Admin Hydrocodone Bitart/Acetaminophen 1 tab 05/18/23 01:33 Hydrocodone/Acetaminophen (*Crx) 5-325 Mg Tablet PO TID PRN pain Carvedilol 3.125 mg 05/19/23 09:00 05/19/23 10:01 Carvedilol 3.125 Mg Tablet PO 3.125 mg Q12HR CONRADO Administration Docusate Sodium 100 mg 05/18/23 09:00 05/19/23 10:03 Docusate Sodium 100 Mg Capsule PO 100 mg DAILY CONRADO Administration Gabapentin 300 mg 05/18/23 09:00 05/19/23 10:03 Gabapentin 300 Mg Capsule PO 300 mg BID CONRADO Administration Pantoprazole Sodium 40 mg 05/18/23 0
--- NOTE | 2023-05-19 15:41 | PM.DS ---
DS: Admitting Diagnosis Discharge Date 05/19/2023 Admitting Diagnosis Leg swelling DS: Discharge Diagnosis Discharge Diagnosis (1) Swelling of both lower extremities: Code(s): M79.89 - Other specified soft tissue disorders Status: Acute (2) Acute hyponatremia: Code(s): E87.1 - Hypo-osmolality and hyponatremia Status: Acute (3) Elevated lipids: Code(s): E78.5 - Hyperlipidemia, unspecified Status: Acute (4) Chronic systolic heart failure: Code(s): I50.22 - Chronic systolic (congestive) heart failure Status: Acute (5) CAD (coronary artery disease): Code(s): I25.10 - Atherosclerotic heart disease of [place] coronary artery without angina pectoris Status: Acute (6) Acute on chronic kidney failure: Code(s): N17.9 - Acute kidney failure, unspecified; N18.9 - Chronic kidney disease, unspecified Status: Acute (7) ROBERT on CPAP: Code(s): G47.33 - Obstructive sleep apnea (adult) (pediatric); Z99.89 - Dependence on other enabling machines and devices Status: Acute (8) Morbid obesity with BMI of 40.0-44.9, adult: Code(s): E66.01 - Morbid (severe) obesity due to excess calories; Z68.41 - Body mass index [BMI] 40.0-44.9, adult Status: Acute (9) Gastroesophageal reflux disease: Code(s): K21.9 - Gastro-esophageal reflux disease without esophagitis Status: Acute (10) Chronic low back pain with left-sided sciatica: Code(s): M54.42 - Lumbago with sciatica, left side; G89.29 - Other chronic pain Status: Acute DS: Summary Hospital Course Hospital Course: 78-year-old female with history of CHF hyperlipidemia hypertension presented with leg swelling which has been increasingly worse since 4-5 days. She takes Bumex every day and has been doubling the dose of Bumex prior to the admission. Blood work reveals sodium 126 creatinine of 2.6 which is elevated than her baseline. Chest x-ray had mild interstitial edema. She was is started on IV diuresis monitor the renal function. Venous duplex negative for DVT. She was also hyponatremic on admission. Echocardiogram with normal EF which has in much improved she had a history of systolic dysfunction and has been on Entresto and spironolactone. She also uses CPAP at night for underlying ROBERT. Nephrology was also consulted for OMAR. Diuretics were held and suspected OMAR due to over-diuresis. With this creatinine improved and so did the leg swelling. Without further diuresis. Renal ultrasound is negative. She needs to limit fluid intake to 2 L per day. She is okay for Cardiology to discharge and will follow-up as an outpatient basis. She also sees agricultural specialist on regular basis Time Spent with Patient Time attestation: Total time spent providing and/or coordinating discharge services: 35 minutes Exam Narrative: GENERAL: Well-appearing, well-nourished, and in no acute distress. HEAD: Normocephalic, atraumatic. EYES: PERRLA and EOMI. ENT: Nares clear, no rhinorrhea or epistaxis.? Mucous membranes moist. NECK: Supple. CHEST: Clear to auscultation.? No respiratory distress. HEART: Regular rate and rhythm.? Normal peripheral pulses. ABDOMEN: Soft, nontender, nondistended EXTREMITIES: Normal range of motion. Trace edema up to her thighs SKIN: Warm, dry, no rash. NEURO: No focal deficits.? Alert and oriented x3. PSYCH: Normal mood and affect. DS: Data Data Completed and Pending Completed studies during hospitalization: Exam Type: ? ? CA echo doppler color flow Study Info Indications ?? ? - LEG SWELLING Complete two-dimensional, color flow and Doppler transthoracic echocardiogram is performed. Account #: ? ? [id number] Summary ? 1. Complete two-dimensional, color flow and Doppler transthoracic echocardiogram is performed. ? 2. Left ventricular chamber dimension is normal. ? 3. Left ventricular systolic function is normal, estimated at 60-65%. ? 4. Left ventricul
--- NOTE | 2023-05-19 18:30 | PC.NURSE ---
Pt discharged home with self care. Discharge instructions reviewed with pt. Pt verbalizes understanding. Pt IV removed and pt tolerated well. Pt was monitored for any changes in status. Pt denied any pain upon discharge. Pt was wheeled down to car.
== END 2023-05-19 18:15 | disposition home or self-care (01) | DRG 292 ==
LOC: ANHED 19:25 → ANH3MEDSUR 21:20
PROVIDERS: Family Medicine; Internal Medicine Nephrology; Admitting Provider Internal Medicine; Emergency Provider Emergency Medicine; PCP Nurse Practitioner Family; Visit Provider Internal Medicine
DX: I13.0 Hypertensive heart and chronic kidney disease with heart failure and stage 1 through stage 4 chronic kidney disease, or unspecified chronic kidney disease (principal); E87.1 Hypo-osmolality and hyponatremia; I50.22 Chronic systolic (congestive) heart failure; N17.9 Acute kidney failure, unspecified; Z68.41 Body mass index [BMI] 40.0-44.9, adult; N18.32 Chronic kidney disease, stage 3b; E66.9 Obesity, unspecified; E78.5 Hyperlipidemia, unspecified; E66.01 Morbid (severe) obesity due to excess calories; G47.33 Obstructive sleep apnea (adult) (pediatric); I44.7 Left bundle-branch block, unspecified; I25.10 Atherosclerotic heart disease of native coronary artery without angina pectoris; K21.9 Gastro-esophageal reflux disease without esophagitis; M19.90 Unspecified osteoarthritis, unspecified site; M54.42 Lumbago with sciatica, left side; G89.29 Other chronic pain; Z86.16 Personal history of COVID-19; Z99.89 Dependence on other enabling machines and devices; Z87.891 Personal history of nicotine dependence
CPT/HCPCS: 36415; 71046; 76775; 80048; 80053; 80069; 81001; 81050; 82550; 82570; 83880; 84156; 84300; 84484; 84540; 85025; 85610; 85730; 85999; 93005; 93306; 93970; 96374; 99285; A9270; J7030

== ENCOUNTER 2023-12-22 13:39 | Outpatient (CLI) | payer MEDICARE, SELFPAY ==
--- NOTE | ~2023-12-22 | US_ITS ---
EXAMINATION: US venous doppler [facility] DATE: 12/22/2023 15:15 INDICATION: Lower limb pain and swelling. TECHNIQUE: Grayscale ultrasound images without and with compression and Doppler ultrasound images of the bilateral lower extremity veins were obtained. COMPARISON: None. FINDINGS: The visualized portions of right common femoral vein, profunda (deep) femoral vein, femoral vein, pop liteal vein, posterior tibial veins, peroneal veins, gastrocnemius vein and greater saphenous vein ar e patent. There is subcutaneous edema at the right calf. The visualized portions of left common femoral vein, profunda femoral vein, femoral vein, popliteal v ein, posterior tibial veins, peroneal veins, gastrocnemius vein and greater saphenous vein are patent . IMPRESSION: 1. No deep venous thrombosis in either lower limb. Reviewed, dictated and finalized at location L.
== END 2023-12-22 13:40 | disposition home or self-care (01) ==
LOC: ANHIMG 13:39
PROVIDERS: PCP Nurse Practitioner Family; Visit Provider Internal Medicine Cardiovascular Disease
DX: R60.0 Localized edema (principal)
CPT/HCPCS: 93970

== ENCOUNTER 2024-05-28 12:48 | Outpatient (CLI) | payer MEDICARE, SELFPAY ==
--- NOTE | 2024-05-28 13:01 | ECHO_ITS ---
Patient Info Name: Louise Veras Age: 79 years : 1945 Gender: Female Ht: 63 in Wt: 214 lbs BSA: 2.13 m2 HR: 72 bpm BP: 137 / 87 mmHg Heart Rhythm: Sinus Rhythm Technical Quality: Fair Exam Date: 05/28/2024 1:09 PM Exam Location: Echo Lab Patient Status: Outpatient Admit Date: 05/28/2024 Staff Ordering Physician: Anurag Conde DO Secret Code Expert: Marylu Portillo RDCS Attending Provider: Anurag Conde DO Referring Physician: Elton KULKARNI; Exam Type: CA echo doppler color flow Study Info Indications - CHF Complete two-dimensional, color flow and Doppler transthoracic echocardiogram is performed. Summary 1. Complete two-dimensional, color flow and Doppler transthoracic echocardiogram is performed. 2. Left ventricular chamber dimension is normal. 3. Left ventricular systolic function is moderately reduced, estimated at 40-45%. 4. Left ventricular septal wall motion is abnormal with septal motion related to bundle branch block. 5. The left ventricular diastolic function is grade I diastolic dysfunction. 6. E/e' 13 is mildly elevated. 7. Left atrial chamber dimension is moderately enlarged. 8. There is mild tricuspid valve regurgitation. 9. No pulmonary hypertension, estimated pulmonary arterial systolic pressure is 33 mmHg. Left Ventricle E/e' 13 is mildly elevated. Left ventricular chamber dimension is normal. Left ventricular systolic function is moderately reduced, estimated at 40-45%. Left ventricular septal wall motion is abnormal with septal motion related to bundle branch block. The left ventricular diastolic function is grade I diastolic dysfunction. Right Ventricle Right ventricular systolic function is normal and with normal TAPSE 2.6 cm. Right ventricular chamber dimension is normal. Left Atria Left atrial chamber dimension is moderately enlarged. Right Atria Right atrial chamber dimension is normal. Aortic Valve The aortic valve is trileaflet. There is no aortic valve stenosis. There is no aortic valve regurgitation. Pulmonic Valve There is no pulmonic regurgitation. Mitral Valve There is no mitral valve stenosis. There is no mitral valve regurgitation. Tricuspid Valve There is mild tricuspid valve regurgitation. No pulmonary hypertension, estimated pulmonary arterial systolic pressure is 33 mmHg. Pericardium/Pleural There is no pericardial effusion. Inferior Vena Cava Normal inferior vena cava with >50% collapse upon inspiration consistent with normal right atrial pressure, 5 mmHg. Aorta The aortic root size at the sinus of Valsalva is normal. Left Ventricular Outflow Tract Name Value Normal LVOT 2D LVOT Diameter 2.0 cm LVOT Doppler LVOT Peak Gradient 2 mmHg LVOT Mean Gradient 1 mmHg LVOT VTI 16 cm LVOT VTI/AV VTI Ratio 0.5 LVOT Stroke Volume 48 ml LVOT CO 3.2 l/min LVOT CI 1.5 l/min/m2 Pulmonic Valve Name Value Normal -------
== END 2024-05-28 12:49 | disposition home or self-care (01) ==
PROVIDERS: PCP Nurse Practitioner Family; Visit Provider Internal Medicine Cardiovascular Disease
DX: I50.22 Chronic systolic (congestive) heart failure (principal); I36.1 Nonrheumatic tricuspid (valve) insufficiency
CPT/HCPCS: 93306

== ENCOUNTER 2024-07-26 13:00 | Outpatient (RCR) | payer MEDICARE, SELFPAY ==
[2024-07-26 13:10] VITALS: BMI 40.1
[2024-07-26 13:22] VITALS: BMI 40.1
== END 2024-10-16 11:10 | disposition home or self-care (01) ==
LOC: ANHDMC 13:00
PROVIDERS: PCP Nurse Practitioner Family; Visit Provider Family Medicine
DX: E11.9 Type 2 diabetes mellitus without complications (principal); I13.0 Hypertensive heart and chronic kidney disease with heart failure and stage 1 through stage 4 chronic kidney disease, or unspecified chronic kidney disease; N18.30 Chronic kidney disease, stage 3 unspecified; E66.9 Obesity, unspecified; Z71.3 Dietary counseling and surveillance
CPT/HCPCS: 97802

== ENCOUNTER 2024-12-13 15:58 | Outpatient (CLI) | payer MEDICARE, SELFPAY ==
--- NOTE | 2024-12-13 16:00 | ECHO_ITS ---
Patient Info Name: Shellie Leal Age: 79 years : 1945 Gender: Female Ht: 64 in Wt: 222 lbs BSA: 2.18 m2 HR: 77 bpm BP: 122 / 60 mmHg Heart Rhythm: Sinus Rhythm Technical Quality: Fair Exam Date: 12/13/2024 4:08 PM Exam Location: Echo Lab Patient Status: Outpatient Admit Date: 12/13/2024 Staff Ordering Physician: Anurag Conde DO School Attendance Secretary: Susan Schmid RDCS Attending Provider: Anurag Conde DO Referring Physician: Elton KULKARNI; Exam Type: CA echo doppler color flow Study Info Indications - CHF Complete two-dimensional, color flow and Doppler transthoracic echocardiogram is performed. Summary 1. Complete two-dimensional, color flow and Doppler transthoracic echocardiogram is performed. 2. Left ventricular chamber dimension is moderately enlarged. 3. Left ventricular systolic function is mildly globally reduced, estimated at 45-50%. 4. Left ventricular septal wall motion is abnormal with septal motion related to bundle branch block. 5. The left ventricular diastolic function is grade I diastolic dysfunction. 6. E/e' 11 is mildly elevated. 7. Left atrial chamber dimension is moderately enlarged. Left Ventricle Left ventricular chamber dimension is moderately enlarged. Left ventricular systolic function is mildly globally reduced, estimated at 45-50%. Left ventricular septal wall motion is abnormal with septal motion related to bundle branch block. The left ventricular diastolic function is grade I diastolic dysfunction. E/e' 11 is mildly elevated. Right Ventricle Right ventricular chamber dimension is normal. Right ventricular systolic function is normal and with normal TAPSE 2.9 cm.. Left Atria Left atrial chamber dimension is moderately enlarged. Right Atria Right atrial chamber dimension is normal. Aortic Valve The aortic valve is trileaflet. There is no aortic valve stenosis. There is no aortic valve regurgitation. Pulmonic Valve There is no pulmonic regurgitation. Mitral Valve There is no mitral valve stenosis. There is no mitral valve regurgitation. Tricuspid Valve There is no tricuspid valve regurgitation. Pericardium/Pleural There is no pericardial effusion. Inferior Vena Cava Normal inferior vena cava with >50% collapse upon inspiration consistent with normal right atrial pressure, 5 mmHg. Aorta The aortic root size at the sinus of Valsalva is normal. Left Ventricular Outflow Tract Name Value Normal LVOT 2D LVOT Diameter 1.95 cm LVOT Doppler LVOT Peak Velocity 118.88 cm/s LVOT Peak Gradient 6 mmHg LVOT Mean Gradient 3 mmHg LVOT VTI 26.36 cm LVOT VTI/AV VTI Ratio 0.84 LVOT Stroke Volume 78.75 ml LVOT CO 15.05 l/min LVOT CI 6.90 L/min/m2 Pulmonic Valve Name Value Normal RVOT Doppler RVOT Peak Gradient 4 mmHg PV Doppler PV Peak Velocity 124.88 cm/s PV Peak Gradient 6 mmHg Mitral Valve Name Value Normal MV Doppler MV Decel [place] 349.45 cm/s2 MV PHT 0 s MV Area (PHT) 3.83 cm2 4.00-5.00 MV Diastolic Function MV E Peak Velocity 69.14 cm/s MV A Peak Velocity 108.68 cm/s MV E/A 0.64 MV Decel Time 0 s MV Annular TDI MV Septal e' Velocity 6.16 cm/s >=8.00 MV E/e' (Septal) 11.23 <=8.00 MV Lateral e' Velocity 6.21 cm/s >=10.00 MV E/e' (Lateral) 11.13 <=8.00 MV e' Average 6.18 MV E/e' (Average) 11.18 Tricuspid Valve Name Value Normal TV Regurgitation Doppler TR Peak Velocity 280.98 cm/s TR Peak Gradient 32 mmHg Estimated PAP/RSVP RA Pressure 5 mmHg <=5 PA Systolic Pressure 37 mmHg <36 RV Systolic Pressure 37 mmHg <36 TV Annular TDI TV Lateral Shayla s' Velocity 13.42 cm/s 9.50-18.70 Aortic Valve Name Value Normal AV Doppler AV Peak Velocity 150.94 cm/s AV Peak Gradient 9 mmHg AV Mean Gradient 5 mmHg AV VTI 31.33 cm AV Area (Cont Eq VTI) 2.51 cm2 >=3.00 AV Area (Cont Eq [place]) 2.35 cm2 AV V1/V2 Ratio 0.79 AV Regurgitation 2D LVOT Area 2.99 cm2 Ventricles Name Value Normal LV Dimensions 2D/MM IVS Diastolic Thickness (2D) 1.09 cm 0.60-1.00 LVID Diastole (2D) 5.12 cm 3.80-5.20 LVIW Diastolic Thickness (2D) 1.08 cm 0.60-0.90 LVID Systole (2D) 3.37 cm 2.20-3.50 LVOT Diameter 1.95 cm LV Mass (2D Cubed) 211.15 g 67.00-162.00 LV Mass Index (2D Cubed) 0.01 g/cm2 0.00-0.01 Relative Wall Thickness (2D) 0.42 LV Fractional Shortening/Ejection Fraction 2D/MM LV Fractional Shortening (2D) 34 % 27-45 LV EF (2D Teichkadenz) 63 % 54-74 LV Diastolic Volume (4C MOD) 137.37 ml LV EF (4C MOD) 62 % LV Diastolic Volume (2C MOD) 150.35 ml LV EF (2C MOD) 61 % LV Diastolic Volume (BP MOD) 148.77 ml 46.00-106.00 LV Diastolic Volume Index (BP MOD) 0.07 l/m2 0.03-0.06 LV Systolic Volume (BP MOD) 55.69 ml 14.00-42.00 LV Systolic Volume Index (BP MOD) 0.03 l/m2 0.01-0.02 LV EF (BP MOD) 63 % 54-74 LV Diastolic Length (4C) 8.71 cm LV Systolic Length (4C) 7.25 cm LV Stroke Volume (4C MOD) 85.56 ml Atria Name Value Normal LA Dimensions LA Volume (4C A-L) 131.81 ml LA Volume (BP A-L) 109.65 ml Report Signatures
--- OUTSIDE RECORDS SUMMARY | 2024-12-13 16:51 | XMS_ITS | Encounter Summary ---
Author Organization [facility] Facility Care Team Providers Care Whiting Can Worker Name Role Phone Kory Hart MD Primary Care Provider [phone] Jesus Frost DO Primary Care Provider [phone] Encounter Details Date Type Department Care Team (Latest Contact Info) Description 07/08/2016 Orders Only [facility]INCON[facility] ProviderKarol MD [address] [place] [id number] Social History Tobacco Use Types Packs/Day Years Used Date Smoking Tobacco: Never Assessed Comments Unknown Sex and Gender Information Value Date Recorded Sex Assigned at Not on file 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 Historical Provider [facility] YOHAN LEDESMA Final Result documented in this encounter Visit Diagnoses Not on filedocumented in this encounter Additional Health Concerns Infection Onset Date Last Indicated Resolved Time MRSA Comment:hx 2012- after back surgery to wound- resolved, 11/21/2013 11/20/2013 05/27/2021 5:00 AM C DT documented as of this encounter Care Teams Whiting Can Worker Relationship Specialty Start Date End Date Kory Hart MD [address] [place] [address] PCP - General 11/28/18 06/21/19 Jesus Frost DO [address] [place] [address] PCP - General 06/22/19 documented as of this encounter
--- OUTSIDE RECORDS SUMMARY | 2024-12-13 16:51 | XMS_ITS | Encounter Summary ---
Author Organization [facility] Facility Care Team Providers Care Soda Room Operator Name Role Phone Kory Hart MD Primary Care Provider [phone] Jesus Frost DO Primary Care Provider [phone] Encounter Details Date Type Department Care Team (Latest Contact Info) Description 05/05/2016 Orders Only [facility] CLINCON[facility] ProviderKarol MD [address] [place] [id number] Social History Tobacco Use Types Packs/Day Years Used Date Smoking Tobacco: Never Assessed Comments Unknown Sex and Gender Information Value Date Recorded Sex Assigned at Not on file 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 Historical Provider Final Res ult * CARDIOLOGY REPORT (08/05/2016 12:00 AM CDT) Anatomical Region Laterality Modality Other Narrative 08/05/2016 12:00 AM CDT Ordered by an unspecified provider. us Historical Provider [facility] YOHAN LEDESMA Final Result documented in this encounter Visit Diagnoses Not on filedocumented in this encounter Additional Health Concerns Infection Onset Date Last Indicated Resolved Time MRSA Comment:hx 2012- after back surgery to wound- resolved, 11/21/2013 11/20/2013 05/27/2021 5:00 AM C DT documented as of this encounter Care Teams Soda Room Operator Relationship Specialty Start Date End Date Kory Hart MD [address] [place] [address] PCP - General 11/28/18 06/21/19 Jesus Frost DO [address] [place] [address] PCP - General 06/22/19 documented as of this encounter
--- OUTSIDE RECORDS SUMMARY | 2024-12-13 16:51 | XMS_ITS | Clinical Summary ---
Author Organization [facility] at the [facility] [place] Address [address] [place] [address] Care Team Providers Care Powerhouse Mechanic Supervisor Name Role Phone Margot, Jesus Primary Care Provider [phone] Allergies Active Allergy Reactions Criticality Noted Date Comments Sulfa (Sulfonamide Antibiotics) Rash Medium 06/22/2016 In her early 20's. Rash and lots of pain Medications bumetanide (BUMEX) 1 mg tablet Take 2 tablets (2 mg total) by mouth daily 07/16/20 17 Active docusate sodium (COLACE) 100 mg capsule Take 1 capsule (100 mg total) by mouth daily Active gabapentin (NEURONTIN) 300 mg capsule Take 1 capsule (300 mg total) by mouth 2 (two) times a day 05/20/20 16 Active glucosamine-cho ndroitin 500-400 mg capsule Take 2 capsules by mouth daily Active tolterodine LA (DETROL LA) 2 mg 24 hr capsule Take 1 capsule (2 mg total) by mouth 2 (two) times a day 08/12/20 16 Active rosuvastatin (CRESTOR) 10 mg tablet Take 1 tablet (10 mg total) by mouth daily 10/13/19 18 Active omeprazole (PriLOSEC) 20 mg capsule Take 1 capsule (20 mg total) by mouth daily 03/03/20 16 Active omega-3 fatty acids (LOVAZA) 1 gram capsule Take 2 capsules (2,000 mg total) by mouth daily Active sacubitriL-vals yao (ENTRESTO) 49-51 mg tablet Take 1 tablet by mouth 2 (two) times a day Active carvediloL (COREG) 3.125 mg tablet 07/08/20 23 Active bexagliflozin (Brenzavvy) 20 mg tabletIndicatio ns:Stage 3b chronic kidney disease (HCC) Take 20 mg by mouth early childhood lead teacher before breakfast 90 tablet 3 11/15/19 25 026 Active dapagliflozin propanediol (Farxiga) 5 mg tablet Take 1 tablet (5 mg total) by mouth daily 30 tablet 11 10/10/19 25 025 Discontinued Active Problems Problem Noted Date Diagnosed Date Severe obesity 08/29/2024 Body mass index 40.0-44.9, adult (CMS/HCC) 08/29 ROBERT (obstructive sleep apnea) 05/16/2023 Assessment & Plan (08/31/2023 11:56 AM ACCOUNT RESOLUTION ANALYST): Patient continue to wear her CPAP at 8 cm water pressure while sleeping. Her DME is [facility]. Assessment & Plan (05/16/2023 3:08 PM CDT): I have sent an order over to [facility] to assure that the patient's CPAP is set at 8 cm water pressure. Cardiorenal syndrome 05/20/2020 Localized edema 05/20/2020 S/P insertion of spinal cord stimulator 07/10/20 19 OMAR (acute kidney injury) 07/10/2019 Cellulitis 07/10/2019 Cellulitis and abscess of left leg 07/10/2019 CRD (chronic renal disease), stage III 9 Cramp of limb 07/10/2019 Elevated erythrocyte sedimentation rate 07/10/20 19 Surgical aftercare, musculoskeletal system 07/10 Hyperlipidemia 07/10/2019 Infection of left prepatellar bursa 07/10/2019 Chronic pain of left knee 07/10/2019 Morbid obesity with BMI of 40.0-44.9, adult 10/0 10/2018 Need for prophylactic measure 07/10/2019 Positive cardiac stress test 07/10/2019 Sepsis 07/10/2019 Sacroiliitis 10/25/2018 Lumbar facet arthropathy 11/16/2017 Lumbar radiculitis 09/14/2017 Cardiomyopathy 08/13/2016 CHF (congestive heart failure) 08/13/2016 Overview (07/10/2019): Of unknown duration. Abnormal EKG 08/05/2016 Overview (03/20/2019): Left bundle branch block of uncertain duration. Encounters Date Type Department Care Team Description 11/21/2024 Telephone [facility] Pulmonary [place] [address] [facility] [address] [place] [address] Americo Dickens CMA 11/15/2024 Telephone [facility] Nephrology at [address] [place] [address] Juan R Harper MD from Last 3 Months Immunizations Immunization Administration Dates Next Due Influenza, Quadrivalent, Spl it, Preservative Free, Intramuscular 11/26/2016 Influenza, Trivalent, High D ose, Split, Preservative Free, Intramuscular 07/21/2018 Surgical History Surgery Date Site/Laterality Comments CARDIAC CATHETERIZATION BACK SURGERY REPLACEMENT TOTAL KNEE Bilateral Medical History Medical History Date Comments CHF (congestive heart failure) (HCC) Hyperlipidemia Back pain OA (osteoarthritis) DJD (degenerative joint disease) Edema Internal hemorrhoid Lumbago MRSA infection Vertigo Cellulitis Diverticulitis Family History Medical History Relation Name Comments Diabetes Father Relation Name Status Comments Father Social History Tobacco Use Types Packs/Day Years Used Date Smoking Tobacco: Former Cigarettes Smokeless Tobacco: Never Tobacco Cessation:Counseling Given: Not Answered Alcohol Use Standard Drinks/Week Comments Never 0 (1 standard drink = 0.6 oz pur e alcohol) AUDIT-C Answer Date Recorded Q1: How often do you have a drink containing alc ohol? Never 08/29/2024 Average Number of Drinks Not on file 024 Frequency of Binge Drinking Not on file 08/11 Comments Unknown Sex and Gender Information Value Date Recorded Sex Assigned at Not on file Legal Sex Female 1:09 AM ACCOUNT RESOLUTION ANALYST Gender Identity Not on file Sexual Orientation Not on file Obstetrics History Last Filed Vital Signs Vital Sign Reading Time Taken Comments Blood Pressure 112/71 08/29/2024 2:55 PM ACCOUNT RESOLUTION ANALYST Pulse 73 08/29/2024 2:55 PM ACCOUNT RESOLUTION ANALYST Temperature 36.1 C (97 F) 08/29/2024 2:55 PM ACCOUNT RESOLUTION ANALYST Respiratory Rate 18 08/31/2023 10:42 AM ACCOUNT RESOLUTION ANALYST Oxygen Saturation 94% 08/31/2023 10:42 AM ACCOUNT RESOLUTION ANALYST Inhaled Oxygen Concentration - - Weight 104.8 kg (231 lb) 08/29/2024 2:55 PM ACCOUNT RESOLUTION ANALYST Height 161.3 cm (5' 3.5 ) 08/29/2024 2:55 PM ACCOUNT RESOLUTION ANALYST Body Mass Index 40.28 08/29/2024 2:55 PM ACCOUNT RESOLUTION ANALYST Plan of Treatment Health Maintenance Due Date Last Done Comments Depression Screening 1945 Fall Risk Assessment 1945 Hepatitis C Screening 1945 DTaP/Tdap/Td Vaccine (1 - Tdap) 01/09/1956 Hepatitis B Screening 1963 Pneumococcal vaccine 65+ (1 of 1 - PCV) 1995 Zoster Vaccine (1 of 2) 1995 Well Visit 65+ 2010 Influenza Vaccine (#1) 2024 07/21/2018, 2016 Osteoporosis Screening-Bone Density Scan 01/22/2026 01/23/2024, 09/18/2013 Procedures Procedure Name Priority Date/Time Associated Diagnosis Comments DEXA AXIAL SKELETON BONE DENSITY 1 OR MORE SITES Routine 09/18/2013 1:35 PM ACCOUNT RESOLUTION ANALYST from Last 3 Months or Most Recently Relevant to Health Maintenance Results * Dexa Axial Skeleton Bone Density 1 or 2 Site (09/18/2013 1:35 PM ACCOUNT RESOLUTION ANALYST) Anatomical Region Laterality Modality Body N/A Radiographic Roxanne ging 09/18/2013 1:35 PM ACCOUNT RESOLUTION ANALYST Impressions 09/18/2013 2:25 PM ACCOUNT RESOLUTION ANALYST Normal bone mineral density THIS IS AN ELECTRONICALLY VERIFIED REPORT 09/18/2013 2:21 PM: Juan R Tao M.D. Juan R Tao M.D. : 02:21 PM 02:21 PM BM [EOD] Narrative 09/18/2013 2:25 PM ACCOUNT RESOLUTION ANALYST EXAMINATION: Bone Density Study (DEXA) HISTORY: Post menopausal woman with clinical concern for low bone mineral density. COMPARISON: None TECHNIQUE: Dual-energy X-ray absorptiometry of the lumbar spine and total left hip was performed. FINDINGS: Lumbar spine (from L1 through L4): The bone mineral density is 1.131 gm / cm sq. The T-score is 0.8. The percentage of young normal mean is 108%. Total Left Hip: The bone mineral density is 0.919 gm / cm sq. The T-score is -0.2. The percentage of young normal mean is 98%. Left Femoral Neck: The bone mineral density is 0.951 g/cm sq. The T-score is 0.9. The percentage of young normal mean is 112%. Procedure Note Provider, MD Karol - 02/24/2021 EXAMINATION: Bone Density Study (DEXA) HISTORY: Post menopausal woman with clinical concern for low bone mineral density. COMPARISON: None TECHNIQUE: Dual-energy X-ray absorptiometry of the lumbar spine and totalleft hip was performed. FINDINGS: Lumbar spine (from L1 through L4): The bone mineral density is 1.131 gm / cm sq. The T-score is 0.8. The percentage of young normal mean is 108%. Total Left Hip: The bone mineral density is 0.919 gm / cm sq. The T-score is -0.2. The percentage of young normal mean is 98%. Left Femoral Neck: The bone mineral density is 0.951 g/cm sq. The T-score is 0.9. The percentage of young normal mean is 112%. IMPRESSION: Normal bone mineral density THIS IS AN ELECTRONICALLY VERIFIED REPORT 09/18/2013 2:21 PM: Juan R Tao M.D. Juan R Tao M.D. MD: 02:21 PM 02:21 PM [facility] [EOD] Reji Manriquez MANAGER SEMICONDUCTOR IMG DXA PROCEDURES Final Res ult from Last 3 Months or Most Recently Relevant to Health Maintenance Insurance [employer] MEDICARE GOLD Care Teams Powerhouse Mechanic Supervisor Relationship Specialty Start Date End Date Jesus Frost DO PCP - General 06/22/19
--- OUTSIDE RECORDS SUMMARY | 2024-12-13 16:51 | XMS_ITS | Encounter Summary ---
Author Organization [facility] Address [facility] [place] [address] Care Team Providers Care Social Contact Worker Name Role Phone Kory Hart MD Primary Care Provider [phone] Jesus Frost DO Primary Care Provider [phone] Nena Morris NP Primary Care Provider [phone] Reason for Referral * Surgical (Routine) - Closed Specialty Diagnoses / Procedures Referred By Saran koehler Referred To Contact Diagnoses Lumbar radiculopathy Procedures Case request operating room: INJECTION EPIDURAL TRANSFORAMINAL L5-S1 Katia López APNP Phone: tel: fax: Referral ID Status Reason Start Date Expiration Date Visits Re quested Visits Authorized [id number] Closed 05/11/2018 06/11/2019 1 1 Encounter Details Date Type Department Care Team (Late st Contact Info) Description 05/11/2018 Prep for Procedure [facility] Interventional [facility] [place] [address] [id number] Katia López APNP [address] [place] [phone] Social History Tobacco Use Types Packs/Day Years Used Date Smoking Tobacco: Former Cigarettes Q uit: 09/14/1967 Smokeless Tobacco: Never Alcohol Use Standard Drinks/Week Comments No 0 (1 standard drink = 0.6 oz pur e alcohol) Comments No Sex and Gender Information Value Date Recorded Sex Assigned at Female 10/30/2024 12:45 PM BUCKLE ATTACHING MACHINE OPERATOR Legal Sex Female 7:41 PM CDT Gender Identity Not on file Sexual Orientation Not on file Occupation Industry Job Start Date Job End Date Not on file Not on file Not on file Not on file documented as of this encounter Plan of Treatment Not on file documented as of this encounter Visit Diagnoses Diagnosis Lumbar radiculopathy- Primary Thoracic or lumbosacral neuritis or radiculitis, unspecified documented in this encounter Additional Health Concerns Infection Onset Date Last Indicated Resolved Time MRSA 05/18/2017 05/18/2017 COVID-19 Rule Out 09/07/2021 09/07/2021 09/07/2021 10:58 PM BUCKLE ATTACHING MACHINE OPERATOR COVID-19 Confirmed 09/07/2021 09/07/2021 12:35 AM BUCKLE ATTACHING MACHINE OPERATOR documented as of this encounter Care Teams Social Contact Worker Relationship Specialty Start Date End Date Kory Hart MD PCP - General 04/19/17 02/28/19 Jesus Frost DO [address] [address] PCP - General INTERNAL MEDICINE 03/01/19 01/23/24 Nena Morris NP [address] [place] [address] PCP - General Nurse Practitioner Family 01/24/24 documented as of this encounter
--- OUTSIDE RECORDS SUMMARY | 2024-12-13 16:51 | XMS_ITS | Referral Summary ---
Author Organization [facility] Address [address] [place] [address] Care Team Providers Care Clay Caster Name Role Phone Margot Jesus KILPATRICK Primary Care Provider [phone] Encounters Date Type Department Care Team Description 11/21/2024 Telephone [facility] Pulmonary [place] [address] [place] [address] [address] [place] [address] Americo Dickens CMA 11/15/2024 Telephone [facility] Nephrology at [place] [address] [facility] [address] [place] [address] Juan R Harper MD from Last 3 Months Allergies Active Allergy Reactions Criticality Noted Date [...] disease (HCC) Take 20 mg by mouth middle card tender before breakfast 90 tablet 3 11/15/19 25 026 Active dapagliflozin propanediol (Farxiga) 5 mg tablet Take 1 tablet (5 mg total) by mouth daily 30 tablet 11 10/10/19 25 025 Discontinued Active Problems Problem Noted Date Diagnosed Date Severe obesity 08/29/2024 Body mass index 40.0-44.9, adult (CMS/HCC) 08/29 ROBERT (obstructive sleep apnea) 05/16/2023 Assessment & Plan (08/31/2023 11:56 AM FIRESETTER): Patient continue to wear her CPAP at [...] Morbid obesity with BMI of 40.0-44.9, adult 10/2018 Need for prophylactic measure 07/10/2019 Positive cardiac stress test 07/10/2019 Sepsis 07/10/2019 Sacroiliitis 10/25/2018 Lumbar facet arthropathy 11/16/2017 Lumbar radiculitis 09/14/2017 Cardiomyopathy 08/13/2016 CHF (congestive heart failure) 08/13/2016 Overview (07/10/2019): Of unknown duration. Abnormal EKG 08/05/2016 Overview (03/20/2019): Left bundle branch block of uncertain duration. Immunizations Immunization Administration Dates Next Due Influenza, Quadrivalent, Spl it, Preservative Free, Intramuscular 11/26/2016 Influenza, Trivalent, High D ose, Split, Preservative Free, Intramuscular 07/21/2018 Social History Tobacco Use Types Packs/Day Years [...] on file Legal Sex Female 1:09 AM FIRESETTER Gender Identity Not on file Sexual Orientation Not on file Last Filed Vital Signs Vital Sign Reading Time Taken Comments Blood Pressure 112/71 08/29/2024 2:55 PM FIRESETTER Pulse 73 08/29/2024 2:55 PM FIRESETTER Temperature 36.1 C (97 F) 08/29/2024 2:55 PM FIRESETTER Respiratory Rate 18 08/31/2023 10:42 AM FIRESETTER Oxygen Saturation 94% 08/31/2023 10:42 AM FIRESETTER Inhaled Oxygen Concentration - - Weight 104.8 kg (231 lb) 08/29/2024 2:55 PM FIRESETTER Height 161.3 cm (5' 3.5 ) 08/29/2024 2:55 PM FIRESETTER Body Mass Index 40.28 08/29/2024 2:55 PM FIRESETTER Plan of Treatment Not on file Procedures Procedure Name Priority Date/Time Associated Diagnosis Comments DEXA AXIAL SKELETON BONE DENSITY 1 OR MORE SITES Routine 09/18/2013 1:35 PM FIRESETTER from Last 3 Months or Most Recently Relevant to Health Maintenance Results * Dexa Axial Skeleton Bone Density 1 or 2 Site (09/18/2013 1:35 PM FIRESETTER) Anatomical Region Laterality Modality Body N/A Radiographic Roxanne ging 09/18/2013 1:35 PM FIRESETTER Impressions 09/18/2013 2:25 PM FIRESETTER Normal bone mineral density THIS IS AN ELECTRONICALLY VERIFIED REPORT 09/18/2013 2:21 PM: Juan R Tao M.D. Juan R Tao M.D. MD: 02:21 PM 02:[address] [facility] [EOD] Narrative 09/18/2013 2:25 PM FIRESETTER EXAMINATION: Bone Density Study (DEXA) HISTORY: Post [...] Tao M.D. MD: 02:21 PM 02:[address] [facility] [EOD] Reji Manriquez NP IMG DXA PROCEDURES Final Res ult from Last 3 Months or Most Recently Relevant to Health Maintenance Insurance T MEDICARE GOLD Care Teams Clay Caster Relationship Specialty Start Date End Date Jesus Frost DO PCP - General 06/22/19
--- OUTSIDE RECORDS SUMMARY | 2024-12-13 16:51 | XMS_ITS | Encounter Summary ---
Author Organization [facility] Facility Care Team Providers Care Tie Binder Name Role Phone Kory Hart MD Primary Care Provider [phone] Jesus Frost DO Primary Care Provider [phone] Encounter Details Date Type Department Care Team (Latest Contact Info) Description 08/26/2016 Orders Only [facility] ProviderKarol MD [address] [place] [id number] Social History Tobacco Use Types Packs/Day Years Used Date Smoking Tobacco: Never Assessed Comments Unknown Sex and Gender Information Value Date Recorded Sex Assigned at Not on file Legal Sex Female 1:09 AM MEDICAL CLAIMS REPRESENTATIVE Gender Identity Not on file Sexual Orientation Not on file documented as of this encounter Plan of Treatment Not on file documented as of this encounter Procedures Procedure Name Priority Date/Time Associated Diagnosis Comments SCAN - LABS 08/31/2016 12:00 AM MEDICAL CLAIMS REPRESENTATIVE CARDIOLOGY REPORT 08/31/2016 12: 00 AM MEDICAL CLAIMS REPRESENTATIVE CARDIOLOGY REPORT 08/31/2016 12: 00 AM MEDICAL CLAIMS REPRESENTATIVE documented in this encounter Results * SCAN - LABS (08/31/2016 12:00 AM MEDICAL CLAIMS REPRESENTATIVE) Narrative 08/31/2016 12:00 AM MEDICAL CLAIMS REPRESENTATIVE Ordered by an unspecified provider. Historical Provider Final Res ult * CARDIOLOGY REPORT (08/31/2016 12:00 AM MEDICAL CLAIMS REPRESENTATIVE) Anatomical Region Laterality Modality Other Narrative 08/31/2016 12:00 AM MEDICAL CLAIMS REPRESENTATIVE Ordered by an unspecified provider. [facility] Provider CV CARDIAC SERVICES PROCE DURES Final Result * CARDIOLOGY REPORT (08/31/2016 12:00 AM MEDICAL CLAIMS REPRESENTATIVE) Anatomical Region Laterality Modality Other Narrative 08/31/2016 12:00 AM MEDICAL CLAIMS REPRESENTATIVE Ordered by an unspecified provider. Historical Provider CV CARDIAC SERVICES PROCE DURES Final Result documented in this encounter Visit Diagnoses Not on filedocumented in this encounter Additional Health Concerns Infection Onset Date Last Indicated Resolved Time MRSA Comment:hx 2012- after back surgery to wound- resolved, 11/21/2013 11/20/2013 05/27/2021 5:00 AM C DT documented as of this encounter Care Teams Tie Binder Relationship Specialty Start Date End Date Kory Hart MD [address] [place] [address] PCP - General 11/28/18 06/21/19 Jesus Frost DO [address] [place] [address] PCP - General 06/22/19 documented as of this encounter
--- OUTSIDE RECORDS SUMMARY | 2024-12-13 16:51 | XMS_ITS | Encounter Summary ---
Author Organization [facility] Address [address] [place] [address] Care Team Providers Care Secy Name Role Phone MargotJesus DO Primary Care Provider [phone] Nena Morris NP Primary Care Provider [phone] Reason for Referral * Surgical (Routine) - Closed Specialty Diagnoses / Procedures Referred By Saran koehler Referred To Contact Procedures Case request operating room: BLOCK MEDIAL BRANCH LUMBAR L3, L4, L5 Katia López APNP Phone: tel: fax: Referral ID Status Reason Start Date Expiration Date Visits Re quested Visits Authorized [id number] Closed 06/23/2021 07/23/2022 1 1 Encounter Details Date Type Department Care Team (Late st Contact Info) Description 06/23/2021 Prep for Procedure [facility] [place] [address] [phone] Katia López APNP [address] [place] [phone] Social History Tobacco Use Types Packs/Day Years Used Date Smoking Tobacco: Former Cigarettes Q uit: 09/14/1967 Smokeless Tobacco: Never Alcohol Use Standard Drinks/Week Comments No 0 (1 standard drink = 0.6 oz pur e alcohol) Comments No Sex and Gender Information Value Date Recorded Sex Assigned at Female 10/30/2024 12:45 PM DIRECTOR OF SALES SUPPORT Legal Sex Female 7:41 PM CDT Gender Identity Not on file Sexual Orientation Not on file Occupation Industry Job Start Date Job End Date Not on file Not on file Not on file Not on file documented as of this encounter Plan of Treatment Scheduled Orders Name Type Priority Associated Diagnoses Orde r Schedule Case request operating room: [facility] MEDIAL BRANCH LUMBAR L3, L4, L5 Case Request Routine Once for 1 Occ urrences starting 06/23/2021 until 06/23/2021 documented as of this encounter Visit Diagnoses Not on filedocumented in this encounter Additional Health Concerns Infection Onset Date Last Indicated Resolved Time MRSA 05/18/2017 05/18/2017 COVID-19 Rule Out 09/07/2021 09/07/2021 09/07/2021 10:58 PM DIRECTOR OF SALES SUPPORT COVID-19 Confirmed 09/07/2021 09/07/2021 12:35 AM DIRECTOR OF SALES SUPPORT documented as of this encounter Care Teams Secy Relationship Specialty Start Date End Date Jesus Frost DO [address] [address] PCP - General INTERNAL MEDICINE 03/01/19 01/23/24 Nena Morris NP [address] [place] [address] PCP - General Nurse Practitioner Family 01/24/24 documented as of this encounter
--- OUTSIDE RECORDS SUMMARY | 2024-12-13 16:51 | XMS_ITS | Referral Summary ---
Author Organization [facility] Address [address] [place] [address] Care Team Providers Care Attorney At Law Name Role Phone Jesus Frost Primary Care Provider [phone] Source Comments [facility] Affiliates and Associated Physician Practices is amultiple site organization consisting of ambulatory clinics and hospital sitesin [place], [place], [place] and [place]. This disclosure is being madepursuant to the Care Everywhere program and may not contain all information available regarding this patient. Last updated 18.[facility] Allergies Active Allergy Reactions Criticality Noted Date Comments Sulfa Drugs Rash Medium 06/22/2016 In her early 20's. Rash and lots of pain In her early 20's. Rash and lots of pain Medications * Be aware that medications may not be up to date on this document. Alwaysverify current medications with the patient. Medication Sig Dispensed Refills Start Date End Date Status omeprazole (PRILOSEC) 20 MG capsule Take 1 Cap by mouth daily before breakfast Reported on 01/06/2017 3 03/03/2016 Active Magnesium 300 MG Take 300 mg by mouth once daily Reported on 01/06/2017 Active tolterodine (DETROL) 2 MG tablet Take 2 mg by mouth 2 times daily Reported on 01/06/2017 Active bumetanide (BUMEX) 1 MG tablet Take 2 mg by mouth once daily Reported on 01/06/2017 Active celecoxib (CELEBREX) 200 MG capsule Take 200 mg by mouth 2 times daily Reported on 01/06/2017 Active [place]-3 Fatty Acids (FISH OIL) 1000 MG capsule Take 2,000 mg by mouth once daily Reported on 01/06/2017 Active multivitamin daily (THERAGRAN) tablet Take 1 Tab by mouth daily with food Reported on 01/06/2017 Active GELATIN PO Take 500 mg by mouth once daily Reported on 01/06/2017 Active Calcium Carbonate-Vitamin D (CALCIUM-D) 600-400 MG-UNIT Take by mouth 2 times daily Reported on 01/06/2017 Active docusate sodium (COLACE) 100 MG capsule Take 100 mg by mouth 2 times daily Active aspirin EC (ECOTRIN) 81 MG tablet Take 81 mg by mouth once daily 09/16/2021 Active carvedilol (COREG) 3.125 MG tablet Take 1 tablet by mouth 2 times daily 09/12/2021 Active diazePAM (VALIUM) 5 MG tablet TAKE ONE TABLET BY MOUTH 1 HOUR PRIOR TO PROCEDURE 07/10/2021 Active gabapentin (NEURONTIN) 300 MG capsule Take 300 mg by mouth 3 times daily for 30 days 09/12/2021 Active glucosamine-chondroit in 500-400 MG capsule Take 2 capsules by mouth once daily Active HYDROcodone-acetamino phen (NORCO) 5-325 MG tablet Take 1 tablet by mouth 3 times daily as needed 01/15/2022 Active rosuvastatin (CRESTOR) 10 MG tablet Take 10 mg by mouth once daily 12/08/2021 Active sacubitril-valsartan (ENTRESTO) 49-51 MG tablet Take 1 tablet by mouth 2 times daily 09/16/2021 Active spironolactone (ALDACTONE) 25 MG tablet Take 25 mg by mouth once daily 01/10/2022 Active carvedilol (Coreg) 6.25 MG tablet Take 6.25 mg by mouth every 12 hours 05/31/2022 Active Active Problems Problem Noted Date Diagnosed Date S/P insertion of spinal cord stimulator Immunizations Name Administration Dates Next Due INFLUENZA VACCINE, HIGH-DOSE , QUADR. (FLUZONE HIGH-DOSE QUADRIVALENT; 65Y+), 0.7 ML (HD-IIV4) 07/21/2018 INFLUENZA VACCINE, QUADR. (F LUZONE; FLULAVAL; FLUARIX; AFLURIA QUADRIVALENT; 6MO+), 0.5 ML (IIV4) 11/26/2016 Social History Tobacco Use Types Packs/Day Years Used Date Smoking Tobacco: Former Smokeless Tobacco: Never Comments:ages 20-23 Alcohol Use Standard Drinks/Week Comments No 0 (1 standard drink = 0.6 oz pur e alcohol) AUDIT-C Answer Date Recorded Q1: How often do you have a drink containing alc ohol? Never 04/15/2022 Average Number of Drinks Not on file 022 Frequency of Binge Drinking Not on file 04/2022 Sex and Gender Information Value Date Recorded Sex Assigned at Not on file Gender Identity Not on file Sexual Orientation Not on file Last Filed Vital Signs Vital Sign Reading Time Taken Comments Blood Pressure 140/80 06/07/2022 11:33 AM CDT Pulse 71 06/07/2022 11:33 AM CDT Temperature 36.1 C (97 F) 06/07/2022 11:33 AM CDT Respiratory Rate 20 06/07/2022 11:33 AM CDT Oxygen Saturation 98% 06/07/2022 11:33 AM CDT Inhaled Oxygen Concentration 21% 04/27/2017 5 :04 PM CDT Weight 99.8 kg (220 lb) 06/07/2022 11:33 AM CDT Height 161.3 cm (5' 3.5 ) 06/07/2022 11:33 AM CD T Body Mass Index 38.36 06/07/2022 11:33 AM CDT Functional Status Functional Status Response Date of Assess ment Is person deaf or have serious hearing difficult y? No 04/27/2017 Is person blind or have serious difficulty seein g? No 04/27/2017 Does person have serious dif ficulty walking/climbing stairs? Yes 04/27/2017 Does person have difficulty dressing/bathing? No 04/27/2017 Does person have difficulty doing errands alone? No 04/27/2017 Cognitive Status Response Date of Assessm ent Does person have difficulty concentrating/remembering/making decisions? No 04/27/2017 Plan of Treatment Not on file Medical Devices Implanted Type Area Pai Gow Dealer Device Identifier Shelf Expiration Date Model / Serial / Lot Cmnt Bone Co Hv 40gm Implanted:Qty: 1 on 11/25/2016 by Grant Pink MD at [facility] Left: Knee [employer] [id number] 04/08/2018 [id number] / / [id number] 28mm X 8mm Standard Patella Implanted:Qty: 1 on 11/25/2016 by Grant Pink MD at [facility] Left: Knee 08/08/2019 [id number] / / [id number] Cmnt Bone Cblt G-Hv 40gm Hvisc Gnta Strl Implanted:Qty: 1 on 11/25/2016 by Grant Pink MD at [facility] Left: Knee [employer] [id number] / / Cmnt Bone Co Hv Lg 40gm Hvisc Strl Implanted:Qty: 1 on 11/25/2016 by Grant Pink MD at [facility] Left: Knee [employer] [id number] / / Cmnt Bone Co Hv 40gm Implanted:Qty: 1 on 04/27/2017 by Grant Pink MD at [facility] Right: Knee [employer] 04/08/2018 [id number] / / [id number] Cmpnt Fem Kn Rt Cr Cmnt Prm Vngrd Intlk Implanted:Qty: 1 on 04/27/2017 by Grant Pink MD at [facility] Right: Knee [employer] 03/22/2027 [id number] / / [id number] Cmpnt Ptlr 28mm 1 Pg Wire Ascnt Arcm Kn Implanted:Qty: 1 on 04/27/2017 by Grant Pink MD at [facility] Right: Knee [employer] 02/28/2020 [id number] / / [id number] Tray Tib 75mm Kn Cocr I Beam Implanted:Qty: 1 on 04/27/2017 by Grant Pink MD at [facility] Right: Knee [employer] 11/30/2026 [id number] / / [id number] Brng [id number] Vngrd Arcm Kn Ant Stab Implanted:Qty: 1 on 04/27/2017 by Grant Pink MD at [facility] Right: Knee [employer] 03/18/2022 [id number] / / [id number] Administered Medications Advance Directives Documents on File Type Date Recorded Patient Life Skills Consultant Expl anation Adv Directive/Living Will/POA 11/30/2016 2:30 PM Adv Directive/Living Will/POA 11/25/2016 9:31 AM POWER OF FITTER'S ASSISTANT * Full Code (Latest Code Status on File) Date Activated Date Inactivated Comments 04/27/2017 3:56 PM 04/29/2017 5:04 PM * Full Code Date Activated Date Inactivated Comments 11/25/2016 2:01 PM 11/27/2016 3:00 PM Care Teams Attorney At Law Relationship Specialty Start Date End Date Jesus Frost DO [address] [place], [place] [id number] PCP - General Internal Medicine 03/01/22
--- OUTSIDE RECORDS SUMMARY | 2024-12-13 16:51 | XMS_ITS | Encounter Summary ---
Author Organization [facility] Facility Care Team Providers Care Control Cabinet Assembler Name Role Phone Kory Hart MD Primary Care Provider [phone] Jesus Frost DO Primary Care Provider [phone] Encounter Details Date Type Department Care Team (Latest Contact Info) Description 08/09/2016 Orders Only [facility] Provider, MD Karol [address] [place] [id number] Social History Tobacco Use Types Packs/Day Years Used Date Smoking Tobacco: Never Assessed Comments Unknown Sex and Gender Information Value Date Recorded Sex Assigned at Not on file Legal Sex Female 1:09 AM HEEL FINISHER Gender Identity Not on file Sexual Orientation Not on file documented as of this encounter Plan of Treatment Not on file documented as of this encounter Procedures Procedure Name Priority Date/Time Associated Diagnosis Comments CARDIOLOGY REPORT 08/12/2016 12: 00 AM CDT documented in this encounter Results * CARDIOLOGY REPORT (08/12/2016 12:00 AM CDT) Anatomical Region Laterality Modality Other Narrative 08/12/2016 12:00 AM CDT Ordered by an unspecified provider. 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
--- OUTSIDE RECORDS SUMMARY | 2024-12-13 16:51 | XMS_ITS | Clinical Summary ---
Author Organization [facility] Address [address] [place] [address] Care Team Providers Care Washing Machine Loader Name Role Phone Jesus Frost Primary Care Provider [phone] Source Comments [facility],non-owned Affiliates and Associated Physician Practices is amultiple site organization consisting of ambulatory clinics and hospital sitesin [place], [place], [place] and [place]. This disclosure is being madepursuant to the Care Everywhere program and may not contain all information available regarding this patient. Last updated 18.[facility] Allergies Active Allergy Reactions Criticality Noted Date [...] 2 times daily Reported on 01/06/2017 Active [place]-3 Fatty Acids (FISH OIL) 1000 MG capsule [...] AFLURIA QUADRIVALENT; 6MO+), 0.5 ML (IIV4) 11/26/2016 Family History Medical History Relation Name Comments Heart Disease Other 1 Hypertension Other 2 Stroke Other 3 Diabetes Other 4 Relation Name Status Comments Other 1 Other 2 Other 3 Other 4 Social History Tobacco Use Types Packs/Day Years [...] Mass Index 38.36 06/07/2022 11:33 AM CDT Plan of Treatment Health Maintenance Due Date Last Done Comments BONE DENSITY TESTING 1945 DTAP/TDAP/TD VACCINES (1 - Tdap) 01/09/1964 PNEUMOCOCCAL VACCINE 50+ (1 of 1 - PCV) 1995 ZOSTER VACCINE (1 of 2) 1995 Respiratory Syncytial Virus (RSV) Vaccine Pt: or over 60 yrs (1 - 1-dose 75+ series) 01/09/2020 COVID-19 VACCINE ( - 2023-2 5 season) 2024 INFLUENZA VACCINE (#1) 2024 8, 11/26/2016 DEPRESSION SCREENING 10/10/2024 MEDICARE AWV CALENDAR YEAR 2024 HEPATITIS B VACCINE Aged Out No longe r eligible based on patient's age to complete this topic HIB VACCINE Aged Out No longer eligi ble based on patient's age to complete this topic HPV VACCINE Aged Out No longer eligi ble based on patient's age to complete this topic MENINGOCOCCAL (Group B) VACCINE Aged Out No longer eligible b ased on patient's age to complete this topic MENINGOCOCCAL VACCINE Aged Out No dennis elliott eligible based on patient's age to complete this topic Medical Devices Implanted Type Area Fan Engine Engineer Device Identifier Shelf Expiration Date Model / Serial / Lot Cmnt Bone Co Hv 40gm Implanted:Qty: 1 on 11/25/2016 by Grant Pink MD at [facility] Left: Knee [employer] [id number] 04/08/2018 [id number] / / [id number] 28mm X 8mm Standard Patella Implanted:Qty: 1 on 11/25/2016 by Grant Pink MD at [facility] Left: Knee 08/08/2019 [id number] / / [id number] Cmnt Bone Cblt G-Hv 40gm Hvisc Gnta Strl Implanted:Qty: 1 on 11/25/2016 by Grant Pink MD at [facility] Left: Knee [employer] [id number] / / Cmnt Bone Co Hv Lg 40gm Hvisc Strl Implanted:Qty: 1 on 11/25/2016 by Grant Pink MD at [facility] Left: Knee [employer] [id number] / / Cmnt Bone Co Hv 40gm Implanted:Qty: 1 on 04/27/2017 by Grant Pink MD at [facility] Right: Knee [employer] 04/08/2018 [id number] / / [id number] Cmpnt Fem Kn Rt Cr Cmnt Prm Vngrd Intlk Implanted:Qty: 1 on 04/27/2017 by Grant Pink MD at [facility] Right: Knee [employer] 03/22/2027 [id number] / / [id number] Cmpnt Ptlr 28mm 1 Pg Wire Ascnt Arcm Kn Implanted:Qty: 1 on 04/27/2017 by Grant Pink MD at [facility] Right: Knee [employer] 02/28/2020 [id number] / / [id number] Tray Tib 75mm Kn Cocr I Beam Implanted:Qty: 1 on 04/27/2017 by Grant Pink MD at [facility] Right: Knee [employer] 11/30/2026 [id number] / / [id number] Brng [id number] Vngrd Arcm Kn Ant Stab Implanted:Qty: 1 on 04/27/2017 by Grant Pink MD at [facility] Right: Knee [employer] 03/18/2022 [id number] / / [id number] Advance Directives Documents on File Type Date Recorded Patient Environmental Protection Inspector Expl anation Adv Directive/Living Will/POA 11/30/2016 2:30 PM Adv Directive/Living Will/POA 11/25/2016 9:31 AM POWER OF COAL CARRIER * Full Code (Latest Code Status on File) Date Activated Date Inactivated Comments 04/27/2017 3:56 PM 04/29/2017 5:04 PM * Full Code Date Activated Date Inactivated Comments 11/25/2016 2:01 PM 11/27/2016 3:00 PM Care Teams Washing Machine Loader Relationship Specialty Start Date End Date Jesus Frost DO [address] [place] [address] PCP - General Internal Medicine 03/01/22
--- OUTSIDE RECORDS SUMMARY | 2024-12-13 16:51 | XMS_ITS | Clinical Summary ---
Author Organization [facility] Address [facility] [place] [address] Care Team Providers Care Drug Inspector Name Role Phone Nena Morris JOSE Primary Care Provider [phone] Allergies Active Allergy Reactions Criticality Noted Date Comments Sulfa Antibiotics Rash Medium 06/22/2016 In her early 20's. Rash and lots of pain Medications docusate sodium 100 MG capsuleIndicati ons:constipatio n Take 100 mg by mouth 2 (two) times daily as needed for Constipation. Indications: constipation 09/16/20 Active Gelatin 600 MG CapIndications: supplement Take 600 mg by mouth daily. Indications: supplement 09/16/20 21 Active Fish Oil 1000 MG CapIndications: supplement Take 2,000 mg by mouth daily. Indications: supplement 09/16/20 21 Active omeprazole 20 MG capsuleIndicati ons:GERD Take 20 mg by mouth daily. Indications: GERD 0 07/26/20 17 Active rosuvastatin 10 MG tabletIndicatio ns:hyperlipidem ia Take 10 mg by mouth nightly at bedtime. Indications: hyperlipidemia 10/13/19 18 Active hydrocodone-agata taminophen 5-325 MG tabletIndicatio ns:Chronic Pain Take 1 tablet by mouth every 8 (eight) hours as needed for Pain. Indications: Chronic Pain 0 05/30/20 18 Active spironolactone 25 MG tabletIndicatio ns:diuretic Take 25 mg by mouth daily. Indications: diuretic 10/05/20 18 Active sacubitril-vals yao 49-51 MG tabletIndicatio ns:heart failure Take 1 tablet by mouth 2 (two) times daily. Indications: heart failure 09/16/20 Active Calcium Carbonate-Vit D-Min (QC CALCIUM/MINERAL S/VITAMIN D) 600-400 MG-UNIT TabIndications: supplement Take 1 tablet by mouth daily. Indications: supplement 09/16/20 Active glucosamine-cho ndroitin 500-400 MG CapIndications: supplement Take 1 capsule by mouth daily. Indications: supplement 09/16/20 Active aspirin EC 81 MG tabletIndicatio ns:anticoagulat ion Take 81 mg by mouth daily. Indications: anticoagulation 09/16/20 Active multi vitamin/mineral s tabletIndicatio ns:supplement Take 1 tablet by mouth daily. Indications: supplement 09/16/20 Active bumetanide 1 MG tablet [The details of the medication are not available because there are pending changes by a home health clinician.] 30 tablet 09/13/20 Active Additional Information Patient taking differently:1 mg Oral Daily,Indications: diuretic, Reported on 04/13/2022 HYDROcodone-agata taminophen 5-325 MG tabletIndicatio ns:Acute Pain < 7 Day Supply Take 1-2 tablets by mouth every 4 (four) hours as needed for Pain. Indications: Acute Pain < 7 Day Supply For Moderate Pain 20 tablet 10/28/19 22 Active gabapentin 300 MG capsule Take 300 mg by mouth 3 (three) times daily. Active carvedilol 6.25 MG tablet 03/27/20 22 Active celecoxib 200 MG capsule Take 200 mg by mouth 2 (two) times daily. 02/13/20 22 Active tolterodine LA 2 MG 24 hr capsule Take 2 mg by mouth 2 (two) times daily. 11/17/19 22 Active omega-3 acid (LOVAZA) 1 GM capsule Take 2 capsules (2,000 mg total) by mouth daily. Active ipratropium (ATROVENT) 0.06 % nasal spray USE 2 SPRAY(S) IN EACH NOSTRIL THREE TIMES DAILY NEEDED FOR ALLERGY SYMPTOMS 12/12/19 24 Active diflorasone (PSORCON) 0.05 % cream 03/30/20 24 Active Dapagliflozin Propanediol (FARXIGA) 5 MG Tab Active Active Problems Problem Noted Date Diagnosed Date Encephalopathy 09/07/2021 Cardiorenal syndrome 05/20/2020 OMAR (acute kidney injury) 07/10/2019 Cellulitis 07/10/2019 Sepsis ([facility]) 07/10/2019 Cellulitis and abscess of left leg 07/10/2019 Hyperlipidemia 07/10/2019 Elevated erythrocyte sedimentation rate 07/10/20 19 CRD (chronic renal disease), stage III ([facility]) 07/10/2019 Chronic pain of left knee 07/10/2019 Infection of left prepatellar bursa 07/10/2019 S/P insertion of spinal cord stimulator 07/10/20 19 Surgical aftercare, musculoskeletal system 07/10 Positive cardiac stress test 07/10/2019 Sacroiliitis 10/25/2018 Lumbar facet arthropathy 11/16/2017 Lumbar radiculitis 09/14/2017 Cardiomyopathy ([facility]) 08/13/2016 CHF (congestive heart failure) ([facility]) 08/13/2016 Overview (09/07/2021): Of unknown duration. Abnormal EKG 08/05/2016 Overview (09/07/2021): Left bundle branch block of uncertain duration. Encounters Date Type Department Care Team Description 11/14/2024 Telephone [facility] [place] [address] [id number] Heather Rich MD Follow Up Call 10/31/2024 Telephone [facility] [place] [address] [id number] Betsy De Anda, RN Documents 10/30/2024 12:48 PM [employer] - 10/30/2024 11:59 PM [employer] Hospital Encounter [facility] [place] [address] [id number] Iftikhar Merida, [employer] Discharge Disposition: Home or Self Care (Routine Discharge) 10/30/2024 Travel 09/19/2024 11:15 AM [employer] - 09/19/2024 11:59 PM [employer] Hospital Encounter [facility] [place] [address] Fritz Montes De Oca MD Discharge Disposition: Home or Self Care (Routine Discharge) 09/19/2024 Travel from Last 3 Months Family History Medical History Relation Comments Depression Father Heart Disease Father Kidney Disease Father Relation Status Comments Father Mother had colon resect ion and from colon issues Social History Tobacco Use Types Packs/Day Years Used Date Smoking Tobacco: Former Cigarettes Q uit: 09/14/1967 Smokeless Tobacco: Never Alcohol Use Standard Drinks/Week Comments No 0 (1 standard drink = 0.6 oz pur e alcohol) Comments No Sex and Gender Information Value Date Recorded Sex Assigned at Female 10/30/2024 12:45 PM [employer] Legal Sex Female 7:41 PM CDT Gender Identity Not on file Sexual Orientation Not on file Occupation Industry Job Start Date Job End Date Not on file Not on file Not on file Not on file Last Filed Vital Signs Vital Sign Reading Time Taken Comments Blood Pressure 141/99 10/30/2024 1:15 PM [employer] Pulse 84 10/30/2024 1:15 PM [employer] Temperature 35.7 C (96.3 F) 10/30/2024 1:15 PM [employer] Respiratory Rate 18 10/30/2024 1:15 PM [employer] Oxygen Saturation 98% 10/30/2024 1:15 PM [employer] Inhaled Oxygen Concentration - - Weight 100.2 kg (221 lb) 10/30/2024 1:15 PM [employer] Height 161.3 cm (5' 3.5 ) 10/30/2024 1:15 PM [employer] Body Mass Index 38.53 10/30/2024 1:15 PM [employer] Plan of Treatment Health Maintenance Due Date Last Done Comments Pneumococcal Vaccine: 65+ Years (1 of 2 - PCV) 1951 Hepatitis C 1963 DTaP, Tdap and Td Vaccines ( 1 - Tdap) 01/09/1964 Zoster Vaccines (1 of 2) 1995 Annual Medicare Wellness Visit 2010 RSV Immunization or 60+ Years (1 - 1-dose 75+ series) 01/09/2020 COVID-19 Vaccine (2023-2 5 season) 2024 Influenza Adult (#1) 2024 07/21/2018, 11/26/2016 Dexa Scan (General) Completed 01/23/2024, 09/18/2013 Meningococcal B Vaccine Aged Out No l onger eligible based on patient's age to complete this topic Meningococcal Vaccine Aged Out No dennis elliott eligible based on patient's age to complete this topic RSV Immunizations Under 20 Months Aged Out No longer eligible b ased on patient's age to complete this topic Goals Goal Patient Goal Type Associated Problems Recent Progress Patient-Stated? Author Patient will return to prior living situation and remain independent in ADLs upon discharge from hospital General Orin Muniz RN Medical Devices Implanted Type Area Sustainable Systems Analyst Device Identifier Shelf Expiration Date Model / Serial / Lot Stimulator Stimulator Implant [employer] CARDIAC SURGERY AND CARDIAC RHY Description:pts stimulator i s not functioning does not communicate with her control per pt's daughter. Unable to perform MRI's. 09/11/2021 Procedures Procedure Name Priority Date/Time Associated Diagnosis Comments CT PEL WO CON Routine 09/19/2024 11:41 AM [employer] Sacroiliitis ([facility]) BONE DENSITY/DEXA Routine 01/23/2024 2:1 9 PM CDT Other specified disorders of bone density and structure, multiple sites from Last 3 Months or Most Recently Relevant to Health Maintenance Results * CT PEL WO CON (09/19/2024 11:41 AM [employer]) Anatomical Region Laterality Modality Pelvis Computed Tomogra phy 09/26/2024 11:4 3 AM [employer] Impressions 09/26/2024 11:48 AM [employer] IMPRESSION: 1. No acute CT pelvis finding 2. Moderate diffuse bony demineralization; no concerning focal finding 3. Bilateral sacroiliac joints symmetric mild degenerative change by by CT as discussed above. Bilateral hip wqsy-ab-xfuyhgaw osteoarthritis. 4. Imaged lower lumbar spine advanced/severe degenerative spondylosis. 5. Ordered By: FRITZ MONTES DE OCA Interpreted By: Harjit Malone MD, 09/26/2024 11:43 AM Narrative 09/26/2024 11:48 AM [employer] [address] [address] EXAMINATION: CT Pelvis without contrast EXAM DATE/TIME: 09/19/2024 11:33 AM REASON FOR EXAM: 79 female. Pelvic pain, sacroiliitis . Preliminary imaging for planned fusion COMPARISON: None TECHNIQUE: Computed tomography of the pelvis performed without contrast. A dose lowering technique was used for this procedure, which may include, but is not limited to, dose reduction technique, automated exposure control, the use of iterative reconstruction, and ALARA (As Low As Reasonably Achievable) / Image Gently techniques. FINDINGS: There is a moderate diffuse bony demineralization. No focal erosive or destructive change or focal finding. There is no fracture or dislocation of the pelvis are imaged portions of the hips. Both femoral heads are well formed and seated within acetabulum. There is bilateral hip weightbearing joint space narrowing and overall cdbr-pa-nfpgoznv hip osteoarthritis. There is bilateral symmetric mild sacroiliac joint degenerative change with the joint vacuum phenomenon and marginal spurring. There is advanced/severe lower lumbar degenerative spondylosis involving the disc endplates and facets. Limited soft tissue assessment without any acute other significant finding. Bilateral gluteal muscle specifically medius and minimus fatty atrophy. Status post hysterectomy. No pelvic, adnexal mass. Incompletely distended unremarkable urinary bladder. Imaged bowel is normal in caliber and thickness. Procedure Note Harjit Malone MD - 09/26/[address] [address] EXAMINATION: CT Pelvis without contrast EXAM DATE/TIME: 09/19/2024 11:33 AM REASON FOR EXAM: 79 female. Pelvic pain, sacroiliitis . Preliminaryimaging for planned fusion COMPARISON: None TECHNIQUE: Computed tomography of the pelvis performed without contrast. Adose lowering technique was used for this procedure, which may include,but is not limited to, dose reduction technique, automated exposurecontrol, the use of iterative reconstruction, and ALARA (As Low AsReasonably Achievable) / Image Gently techniques. FINDINGS: There is a moderate diffuse bony demineralization. No focalerosive or destructive change or focal finding. There is no fracture or dislocation of the pelvis are imaged portions ofthe hips. Both femoral heads are well formed and seated withinacetabulum. There is bilateral hip weightbearing joint space narrowing and vzaqfhyzqdy-fh-ddfjbiiz hip osteoarthritis. There is bilateral symmetric mild sacroiliac joint degenerative changewith the joint vacuum phenomenon and marginal spurring. There is advanced/severe lower lumbar degenerative spondylosis involvingthe disc endplates and facets. Limited soft tissue assessment without any acute other significantfinding. Bilateral gluteal muscle specifically medius and minimus fattyatrophy. Status post hysterectomy. No pelvic, adnexal mass. Incompletely distendedunremarkable urinary bladder. Imaged bowel is normal in caliber andthickness. IMPRESSION: 1. No acute CT pelvis finding 2. Moderate diffuse bony demineralization; no concerning focal finding 3. Bilateral sacroiliac joints symmetric mild degenerative change by byCT as discussed above. Bilateral hip xjhz-bb-uzwzjnyh osteoarthritis. 4. Imaged lower lumbar spine advanced/severe degenerative spondylosis. 5. Ordered By: FRITZ MONTES DE OCA Interpreted By: Harjit Malone MD, 09/26/2024 11:43 AM us Fritz Montes De Oca MD CT Final Resul t * BONE DENSITY/DEXA (01/23/2024 2:19 PM CDT) Anatomical Region Laterality Modality Bone Mammography 01/23/2024 2:34 PM CDT Impressions 01/23/2024 2:35 PM CDT IMPRESSION: WHO Classification: Osteoporosis. RECOMMENDATIONS: All patients should ensure an adequate intake of dietary calcium and vitamin D. The NOF recommend adults under the age of 50 need 1000 mg of calcium and 400-800 IU of vitamin D daily. Effective therapy for the prevention and treatment of osteoporosis include bisphosphonates. FOLLOW-UP: People with diagnosed cases of osteoporosis or at high risk for fracture should have regular bone mineral density test. For patients eligible for Medicare, routine testing is allowed once every 2 years. Testing frequency can be increased to one year for patients who have rapidly progressing disease, those who are receiving or discontinuing medical therapy to restore bone mass, or have additional risk factors. Ordered By: ANTONETTE GUERRA Interpreted By: Hilario Walker, 01/23/2024 2:34 PM Narrative 01/23/2024 2:35 PM CDT EXAMINATION: BONE DENSITY/DEXA INDICATIONS: Other specified disorders of bone density and structure, multiple sites COMPARISON: None TECHNIQUE: DEXA bone mineral density evaluation was performed in the AP projection over the lumbar spine and both hips utilizing standard imaging techniques. FINDINGS: The BMD measured at the AP spine L1-L4 is 1.202 g/cm? with a T-score of 1.4. The BMD measured at the left femoral neck is 0.570 g/cm? with a T-score of -2.5. The BMD measured at the left hip is 0.796 g/cm? with a T-score of -1.2. The BMD measured at the right femoral neck is 0.622 g/cm? with a T-score of - 2.0. The BMD measured at the right hip is 0.768 g/cm? with a T-score of -1.4. FRAX 10-year fracture risk: Major Osteoporotic Fracture: 31% Hip Fracture: 21% Procedure Note Hilario Walker MD - 01/23/2024 EXAMINATION: BONE DENSITY/DEXA INDICATIONS: Other specified disorders of bone density and structure,multiple sites COMPARISON: None TECHNIQUE: DEXA bone mineral density evaluation was performed in the APprojection over the lumbar spine and both hips utilizing standard imagingtechniques. FINDINGS: The BMD measured at the AP spine L1-L4 is 1.202 g/cm? with a T-score of1.4. The BMD measured at the left femoral neck is 0.570 g/cm? with a T-score of-2.5. The BMD measured at the left hip is 0.796 g/cm? with a T-score of -1.2. The BMD measured at the right femoral neck is 0.622 g/cm? with a T-scoreof -2.0. The BMD measured at the right hip is 0.768 g/cm? with a T-score of -1.4. FRAX 10-year fracture risk: Major Osteoporotic Fracture: 31% Hip Fracture: 21% IMPRESSION: WHO Classification: Osteoporosis. RECOMMENDATIONS: All patients should ensure an adequate intake of dietary calcium andvitamin D. The NOF recommend adults under the age of 50 need 1000 mg ofcalcium and 400-800 IU of vitamin D daily. Effective therapy for theprevention and treatment of osteoporosis include bisphosphonates. FOLLOW-UP: People with diagnosed cases of osteoporosis or at high risk for fractureshould have regular bone mineral density test. For patients eligible forMedicare, routine testing is allowed once every 2 years. Testing frequencycan be increased to one year for patients who have rapidly progressingdisease, those who are receiving or discontinuing medical therapy torestore bone mass, or have additional risk factors. Ordered By: ANTONETTE GUERRA Interpreted By: Hilario Walker, 01/23/2024 2:34 PM Antonette Guerra NP DEXA Final Result from Last 3 Months or Most Recently Relevant to Health Maintenance Additional Health Concerns Infection Onset Date Last Indicated MRSA 05/18/2017 05/18/2017 Insurance [employer] Advance Directives * Full Code (Latest Code Status on File) Date Activated Date Inactivated Comments 09/16/2021 3:37 PM 10/28/2021 12:37 PM * Full Code Date Activated Date Inactivated Comments 09/08/2021 12:47 AM 09/12/2021 4:54 PM Care Teams Drug Inspector Relationship Specialty Start Date End Date Nena Morris NP [address] [place] [address] PCP - General Nurse Practitioner Family 01/24/24
--- OUTSIDE RECORDS SUMMARY | 2024-12-13 16:51 | XMS_ITS | Encounter Summary ---
Author Organization [facility] Care Team Providers Care Audio Video Tech Name Role Phone Kory Hart MD Primary Care Provider Jesus Frost DO Primary Care Provider [phone] Encounter Details Date Type Department Care Team (Latest Contact Info) Description 08/19/2016 Orders Only [facility]INCON[facility] ProviderKarol MD [address] [place] [id number] Social History Tobacco Use Types Packs/Day Years Used Date Smoking Tobacco: Never Assessed Comments Unknown Sex and Gender Information Value Date Recorded Sex Assigned at Not on file Legal Sex Female 1:09 AM SENIOR CONSULTANT Gender Identity Not on file Sexual Orientation Not on file documented as of this encounter Plan of Treatment Not on file documented as of this encounter Procedures Procedure Name Priority Date/Time Associated Diagnosis Comments CARDIOLOGY REPORT 08/25/2016 12: 00 AM SENIOR CONSULTANT documented in this encounter Results * CARDIOLOGY REPORT (08/25/2016 12:00 AM SENIOR CONSULTANT) Anatomical Region Laterality Modality Other Narrative 08/25/2016 12:00 AM SENIOR CONSULTANT Ordered by an unspecified provider. us Historical Provider [facility] YOHAN LEDESMA Final Result documented in this encounter Visit Diagnoses Not on filedocumented in this encounter Additional Health Concerns Infection Onset Date Last Indicated Resolved Time MRSA Comment:hx 2012- after back surgery to wound- resolved, 11/21/2013 11/20/2013 05/27/2021 5:00 AM C DT documented as of this encounter Care Teams Audio Video Tech Relationship Specialty Start Date End Date Kory Hart MD [address] [place] [address] PCP - General 11/28/18 06/21/19 Jesus Frost DO [address] [place] [address] PCP - General 06/22/19 documented as of this encounter
--- OUTSIDE RECORDS SUMMARY | 2024-12-13 16:51 | XMS_ITS | Patient Health Summary ---
Author Organization [facility] Address [address] [place] [address] Care Team Providers Care Cement Mason Helper Name Role Phone Jesus Frost Primary Care Provider [phone] Note from [facility],non-owned Affiliates and Associated Physician Practices is amultiple site organization consisting of ambulatory clinics and hospital sitesin [place], [place], [place] and [place]. This disclosure is being madepursuant to the Care Everywhere program and may not contain all information available regarding this patient. Last updated 18.[facility] Allergies * Sulfa Drugs(Rash) -Medium Criticality Medications * Be aware that medications may not be up to date on this document. Alwaysverify current medications with the patient. * omeprazole (PRILOSEC) 20 MG capsule(Started 03/03/2016) Take 1 Cap by mouth daily before breakfast Reported on 01/06/2017 3 refills left * Magnesium 300 MG Take 300 mg by mouth once daily Reported on 01/06/2017 * tolterodine (DETROL) 2 MG tablet Take 2 mg by mouth 2 times daily Reported on 01/06/2017 * bumetanide (BUMEX) 1 MG tablet Take 2 mg by mouth once daily Reported on 01/06/2017 * celecoxib (CELEBREX) 200 MG capsule Take 200 mg by mouth 2 times daily Reported on 01/06/2017 * [place]-3 Fatty Acids (FISH OIL) 1000 MG capsule Take 2,000 mg by mouth once daily Reported on 01/06/2017 * multivitamin daily (THERAGRAN) tablet Take 1 Tab by mouth daily with food Reported on 01/06/2017 * GELATIN PO Take 500 mg by mouth once daily Reported on 01/06/2017 * Calcium Carbonate-Vitamin D (CALCIUM-D) 600-400 MG-UNIT Take by mouth 2 times daily Reported on 01/06/2017 * docusate sodium (COLACE) 100 MG capsule Take 100 mg by mouth 2 times daily * aspirin EC (ECOTRIN) 81 MG tablet(Started 09/16/2021) Take 81 mg by mouth once daily * carvedilol (COREG) 3.125 MG tablet(Started 09/12/2021) Take 1 tablet by mouth 2 times daily * diazePAM (VALIUM) 5 MG tablet(Started 07/10/2021) TAKE ONE TABLET BY MOUTH 1 HOUR PRIOR TO PROCEDURE * gabapentin (NEURONTIN) 300 MG capsule(Started 09/12/2021) Take 300 mg by mouth 3 times daily for 30 days * glucosamine-chondroitin 500-400 MG capsule Take 2 capsules by mouth once daily * HYDROcodone-acetaminophen (NORCO) 5-325 MG tablet(Started 01/15/2022) Take 1 tablet by mouth 3 times daily as needed * rosuvastatin (CRESTOR) 10 MG tablet(Started 12/08/2021) Take 10 mg by mouth once daily * sacubitril-valsartan (ENTRESTO) 49-51 MG tablet(Started 09/16/2021) Take 1 tablet by mouth 2 times daily * spironolactone (ALDACTONE) 25 MG tablet(Started 01/10/2022) Take 25 mg by mouth once daily * carvedilol (Coreg) 6.25 MG tablet(Started 05/31/2022) Take 6.25 mg by mouth every 12 hours Active Problems Problem Noted Date Diagnosed Date S/P insertion of spinal cord stimulator Immunizations * INFLUENZA VACCINE, HIGH-DOSE, QUADR. (FLUZONE HIGH-DOSE QUADRIVALENT; 65Y+), 0.7 ML (HD-IIV4)(Given 07/21/2018) * INFLUENZA VACCINE, QUADR. (FLUZONE; FLULAVAL; FLUARIX; AFLURIA QUADRIVALENT; 6MO+), 0.5 ML (IIV4)(Given 11/26/2016) Social History Tobacco Use Types Packs/Day Years [...] Mass Index 38.36 06/07/2022 11:33 AM CDT Medical Devices Implanted Type Area Senior Product Designer Device Identifier Shelf Expiration Date Model / Serial / Lot Cmnt Bone Co Hv 40gm Implanted:Qty: 1 on 11/25/2016 by Grant Pink MD at [facility] Left: Knee [employer] [id number] 04/08/2018 [id number] / / [id number] 28mm X 8mm Standard Patella Implanted:Qty: 1 on 11/25/2016 by Grant Pink MD at [facility] Left: Knee 08/08/2019 [id number] / / [id number] Cmnt Bone Cblt G-Hv 40gm Hvisc Gnta Strl Implanted:Qty: 1 on 11/25/2016 by Grant Pink MD at [facility] Left: Knee [employer] [id number] / / Cmnt Bone Co Hv Lg 40gm Hvisc Strl Implanted:Qty: 1 on 11/25/2016 by Grant Pink MD at [facility] Left: Knee [employer] [id number] / / Cmnt Bone Co Hv 40gm Implanted:Qty: 1 on 04/27/2017 by Grant Pink MD at [facility] Right: Knee [employer] 04/08/2018 [id number] / / [id number] Cmpnt Fem Kn Rt Cr Cmnt Prm Vngrd Intlk Implanted:Qty: 1 on 04/27/2017 by Grant Pink MD at [facility] Right: Knee [employer] 03/22/2027 [id number] / / [id number] Cmpnt Ptlr 28mm 1 Pg Wire Ascnt Arcm Kn Implanted:Qty: 1 on 04/27/2017 by Grant Pink MD at [facility] Right: Knee [employer] 02/28/2020 [id number] / / [id number] Tray Tib 75mm Kn Cocr I Beam Implanted:Qty: 1 on 04/27/2017 by Grant Pink MD at [facility] Right: Knee [employer] 11/30/2026 [id number] / / [id number] Brng [id number] Vngrd Arcm Kn Ant Stab Implanted:Qty: 1 on 04/27/2017 by Grant Pink MD at [facility] Right: Knee [employer] 03/18/2022 [id number] / / [id number] Procedures * MRI LUMBAR SPINE WO CONTRAST(Performed 04/27/2022) Performed for Spinal cord stimulator dysfunction, initial encounter (HCC) * CARDIAC RHYTHM STRIP ORDER(Performed 04/19/2022) * FL FLAQUITA SURGERY(Performed 04/15/2022) Performed for Pain * ENDOTRACHEAL TUBE NOTE(Performed 04/15/2022) * PTT(Performed 04/15/2022) Performed for Preop examination * PT-INR(Performed 04/15/2022) Performed for Preop examination * BASIC METABOLIC PANEL (CALCIUM TOTAL)(Performed 04/15/2022) Performed for Preop examination * CBC W AUTO DIFFERENTIAL(Performed 04/15/2022) Performed for Preop examination * LAMINECTOMY THORACIC(Performed 04/15/2022) Performed for Diagnosis unknown * XR THORACIC SPINE 2VW(Performed 03/01/2022) Performed for S/P insertion of spinal cord stimulator * BASIC METABOLIC PANEL (CALCIUM TOTAL)(Performed 04/29/2017) * HGB HCT PANEL(Performed 04/29/2017) * HGB HCT PANEL(Performed 04/28/2017) * ENDOTRACHEAL TUBE NOTE(Performed 04/27/2017) * ARTHROPLASTY TOTAL KNEE(Performed 04/27/2017) * HGB HCT PANEL(Performed 04/14/2017) Performed for Preop examination * CULTURE MSSA/MRSA(Performed 04/14/2017) Performed for Preop examination * EKG 12-LEAD(Performed 04/14/2017) Performed for Preop examination * XR KNEE LEFT 3VW(Performed 01/06/2017) Performed for Status post knee replacement * CARDIAC ECHOCARDIOGRAM COMPLETE ORDER(Performed 11/30/2016) * CARDIAC EKG ORDER(Performed 11/30/2016) * CARDIAC PROCEDURE ORDER(Performed 11/30/2016) * HGB HCT PANEL(Performed 11/27/2016) * BASIC METABOLIC PANEL (CALCIUM TOTAL)(Performed 11/26/2016) * HGB HCT PANEL(Performed 11/26/2016) * LARYNGEAL MASK AIRWAY(Performed 11/25/2016) * ARTHROPLASTY TOTAL KNEE REVISION FEMORAL AND ENTIRE TIBIAL COMPONENT(Performed 11/25/2016) * CBC W AUTO DIFFERENTIAL(Performed 11/12/2016) Performed for Preop examination * COMPREHENSIVE METABOLIC PANEL(Performed 11/12/2016) Performed for Preop examination * CULTURE MSSA/MRSA(Performed 11/12/2016) Performed for Preop examination * CBC W AUTO DIFFERENTIAL(Performed 07/08/2016) Performed for Preop examination * COMPREHENSIVE METABOLIC PANEL(Performed 07/08/2016) Performed for Preop examination * CULTURE MSSA/MRSA(Performed 07/08/2016) Performed for Preop examination * EKG 12-LEAD(Performed 07/08/2016) Performed for Preop examination Results * MRI LUMBAR SPINE WO CONTRAST (04/27/2022 3:58 PM CDT) Anatomical Region Laterality Modality Spine Magnetic Resonan ce 04/28/2022 10:1 8 AM CDT Impressions 04/28/2022 1:27 PM CDT IMPRESSION: 1. No evidence of acute fracture or compression deformity. 2. Multilevel degenerative changes as detailed above most prominent at the level of L2-L3 with the severe bilateral neural foraminal stenosis. I, Dr. NORMA FARLEY MD have personally reviewed and interpreted this examination/study. This report was electronically signed by NORMA FARLEY MD on 04/28/2022 1:27 PM . Narrative 04/28/2022 1:27 PM CDT EXAMINATION: Magnetic resonance imaging (MRI) of the lumbar spine without contrast HISTORY: T85.192A: Spinal cord stimulator dysfunction, initial encounter TECHNIQUE: MRI of the lumbar spine was performed without contrast according to standard protocol. COMPARISON: None FINDINGS: The last well-formed disc is labeled as L5-S1. No evidence of acute fracture. No acute compression deformities are seen. There is straightening of the lumbar lordosis.. Grade 1 anterolisthesis of T12 over L1. Mild retrolisthesis of L2 over L3. Multilevel Modic changes are noted with edema at the level of L2-L3, T12-L1, L5-S1. There is advanced degenerative disc disease with severe disc space narrowing and the disc protrusions. There are no aggressive appearing osseous lesions. There is no epidural fluid collection. The conus medullaris lies at T12-L1. The cauda equina is normal in appearance. Multiple renal cysts noted. Small subcutaneous T2 hyperintense collection noted in the right posterior subcutaneous tissue, close to the skin at the level of L5 measuring 3.5 x 0.9 cm most likely a small fluid collection/cyst. Prior postsurgical changes with laminectomy at the level of L3 and L4.. Individual level analysis is as follows: T12-L1: Diffuse disc bulge, asymmetric to the right. There is mild spinal canal stenosis. There is moderate bilateral neural foraminal stenosis. Moderate bilateral facet arthropathy L1-2: Diffuse disc bulge. There is no significant spinal canal stenosis. There is [id number] right-sided neural foraminal stenosis, mild left neural foraminal stenosis. Mild bilateral facet arthropathy L2-3: Asymmetric right broad-based disc bulge is noted with narrowing of the right subarticular recess. Gfgf-sl-uxkyhudu spinal canal stenosis is noted. There is severe bilateral neuroforaminal stenosis, right greater than left. Moderate left-sided facet arthropathy, mild right facet arthropathy. L3-4: Diffuse disc bulge with superimposed central disc protrusion. There is narrowing of the bilateral subarticular recesses. There is no significant spinal canal stenosis with posterior decompression. Bilateral severe neural foraminal stenosis. L4-5: Diffuse disc bulge. There is no significant spinal canal stenosis with posterior decompression. There is moderate right, severe left neural foraminal stenosis. Moderate bilateral facet arthropathy L5-S1: Diffuse disc bulge slightly asymmetric to the left. There is mild hypertrophy of the ligamentum flavum. There is mild spinal canal stenosis. There is bilateral lateral recess/subarticular recess stenosis. There is moderate to severe left and moderate right neural foraminal stenosis. Severe bilateral facet arthropathy. Atrophy of the paraspinal muscles is noted. Procedure Note Norma Farley MD - 04/28/2022 EXAMINATION: Magnetic resonance imaging (MRI) of the lumbar spinewithout contrast HISTORY: T85.192A: Spinal cord stimulator dysfunction, initial encounter TECHNIQUE: MRI of the lumbar spine was performed without contrast according to standard protocol. COMPARISON: None FINDINGS: The last well-formed disc is labeled as L5-S1. No evidence of acute fracture. No acute compression deformities areseen. There is straightening of the lumbar lordosis.. Grade 1 anterolisthesisof T12 over L1. Mild retrolisthesis of L2 over L3. Multilevel Modic changes are noted with edema at the level of L2-L3, T12-L1, L5-S1. There is advanced degenerative disc disease with severe disc space narrowing and the disc protrusions. There are no aggressive appearing osseous lesions. There is no epidural fluid collection. The conus medullaris lies at T12-L1. The cauda equina is normal in appearance. Multiple renal cysts noted. Small subcutaneous T2 hyperintense collection noted in the right posterior subcutaneous tissue, close to the skin at the level of L5 measuring 3.5 x 0.9 cm most likely a small fluid collection/cyst. Prior postsurgical changes with laminectomy at the level of L3 and L4.. Individual level analysis is as follows: T12-L1: Diffuse disc bulge, asymmetric to the right. There is mildspinal canal stenosis. There is moderate bilateral neural foraminal stenosis. Moderate bilateral facet arthropathy L1-2: Diffuse disc bulge. There is no significant spinal canal stenosis. There is xjfk-hz-[id number] right-sided neural foraminal stenosis, mildleft neural foraminal stenosis. Mild bilateral facet arthropathy L2-3: Asymmetric right broad-based disc bulge is noted with narrowing of the right subarticular recess. Lhza-ht-zihxuveb spinal canal stenosis is noted. There is severe bilateral neuroforaminal stenosis, right greater than left. Moderate left-sided facet arthropathy, mild right facet arthropathy. L3-4: Diffuse disc bulge with superimposed central disc protrusion.There is narrowing of the bilateral subarticular recesses. There is no significant spinal canal stenosis with posterior decompression.Bilateral severe neural foraminal stenosis. L4-5: Diffuse disc bulge. There is no significant spinal canal stenosis with posterior decompression. There is moderate right, severe leftneural foraminal stenosis. Moderate bilateral facet arthropathy L5-S1: Diffuse disc bulge slightly asymmetric to the left. There is mild hypertrophy of the ligamentum flavum. There is mild spinal canalstenosis. There is bilateral lateral recess/subarticular recess stenosis. There is moderate to severe left and moderate right neural foraminal stenosis. Severe bilateral facet arthropathy. Atrophy of the paraspinal muscles is noted. IMPRESSION: 1. No evidence of acute fracture or compression deformity. 2. Multilevel degenerative changes as detailed above most prominent atthe level of L2-L3 with the severe bilateral neural foraminal stenosis. I, Dr. NORMA FARLEY MD have personally reviewed and interpretedthis examination/study. This report was electronically signed by NORMA FARLEY MD on 04/28/2022 1:27 PM . William Ochoa MD MR ORDERABLES * CARDIAC RHYTHM STRIP ORDER (04/19/2022 9:14 PM CDT) Narrative 04/19/2022 9:14 PM CDT Ordered by an unspecified provider. Scanned Document CARDIAC SERVICES ORD ERABLES * FL FLAQUITA SURGERY (04/15/2022 8:28 AM CDT) Narrative [facility] - 04/15/2022 8:28 AM CDT For details of this study, please see the providers note. William Ochoa MD FLUOROSCOPY GIL ANGELO [facility] [address] [place] [address] * ETT LINE PERFORMABLE (04/15/2022 8:20 AM CDT) Narrative Yun Mcdaniels APRN-MATERIAL HANDLING SUPERVISOR - 04/15/2022 8:20 AM CDT Cristina Mendoza RN 04/15/2022 8:22 AM Endotracheal Tube Placement: Patient Location: OR. Intubation Event Date/Time: 04/15/2022 7:44 AM Procedure: intubation (37206). Procedure Section: Sedation: under general anesthesia. Indications for Airway Management: anesthesia Induction: standard IV Patient Position: sniffing Mask Ventilation: easy with oral airway. Blade Type: Jason Blade Size: 4 Laryngoscopy View: grade 1 (full cords) Intubation Adjuncts: cricoid pressure and stylet Tube: endotracheal tube Placement: oral Tube type: cuff - inflated Tube Size (MM): 7 Depth of Insertion (CM): 20 Measured From: teeth Cuff Inflated With: air Number of Attempts: 1. Placement Verified By: direct visualization, bilateral breath sounds, chest auscultation and CO2 detector Tube secured with: adhesive tape. Dentition unchanged? Yes Difficult Airway? No. Procedure Start Time: 04/15/2022 7:44 AM. Staff Section Anesthesia Provider: Cristina Mendoza, KAROLINA, Performed the procedure Iron Deluca MD GENERAL ANESTHESIA ORDERABLES * PTT (04/15/2022 6:59 AM CDT) PTT 28.0 23.0 - 38.4 sec 04/15/2022 7:[address] [facility] Blood BLOOD SPECIMEN / Unknown Venipuncture / Unknown 04/15/2022 6:59 AM CDT 04/15/2022 7:[address] [facility] - 04/15/2022 7:37 AM CDT Heparin Therapeutic Range for PTT: 69.0 - 110.0 seconds. Cindy Beaulieu [facility] - COAGULATIO N ORDERABLES Performing Organization Address [facility] de Phone Number [facility] [address] [place] [phone] * PT-INR (04/15/2022 6:59 AM CDT) [facility] PT 12.9 12.1 - 14.8 sec 04/15/2022 7:[address] [facility] INR 1.0 0.9 - 1.1 04/15/2022 7:[address] [facility] Blood BLOOD SPECIMEN / Unknown Venipuncture / Unknown 04/15/2022 6:59 AM CDT 04/15/2022 7:06 AM CDT [facility] - 04/15/2022 7:37 AM CDT Conventional Warfarin Anticoagulant Therapy: INR Reference Range: 2.0-3.0 Intensive Warfarin Anticoagulant Therapy: INR Reference Range: 2.5-3.5 Cindy Beaulieu [facility] - COAGULATIO N ORDERABLES Performing Organization Address [facility] de Phone Number [facility] [address] [place] [phone] * (ABNORMAL) CBC W AUTO DIFFERENTIAL (04/15/2022 6:59 AM CDT) Only the most recent of3 resultswithin the time period is included. Pathologist [facility] WBC 6.3 4.4 - 10.7 x10E9/L 04/15/2022 7:[address] [facility] WBC Corrected 04/15/2022 7:[address] [facility] RBC 3.69(L) 3.80 - 5.20 x10E12/L 04/15/2022 7:[address] [facility] Hemoglobin 11.1(L) 12.0 - 15.6 gm/dL 04/15/2022 7:[address] [facility] Hematocrit 33.6(L) 35.9 - 45.5 % 04/15/2022 7:[address] [facility] MCV 91.1 80.7 - 98.3 fl 04/15/2022 7:[address] [facility] MCH 30.1 26.7 - 34.0 pg 04/15/2022 7:[address] [facility] MCHC 33.0 30.8 - 35.9 gm/dL 04/15/2022 7:[address] [facility] Platelet Count 201 153 - 416 x10E9/L 04/15/2022 7:22 AM [facility] RDW-CV 13.2 12.1 - 14.9 % 04/15/2022 7:[address] [facility] MPV 10.4 9.4 - 12.9 fl 04/15/2022 7:[address] [facility] Neutrophils % 73.1(H) 44.0 - 73.0 % 04/15/2022 7:[address] [facility] Lymphocytes % 17.7(L) 20.0 - 43.0 % 04/15/2022 7:[address] [facility] Monocytes % 8.3 5.0 - 13.0 % 04/15/2022 7:[address] [facility] Eosinophils % 0.2 0.0 - 6.0 % 04/15/2022 7:[address] [facility] Basophils % 0.2 0.0 - 2.0 % 04/15/2022 7:[address] [facility] Immature Granulocytes 0.5 0 - 1 % 04/15/2022 7:[address] [facility] Neutrophil Absolute 4.59 2.01 - 7.14 x10E9/L 04/15/2022 7:[address] [facility] Lymphocytes Absolute 1.11 1.07 - 3.94 x10E9/L 04/15/2022 7:[address] [facility] Monocytes Absolute 0.52 0.26 - 1.07 x10E9/L 04/15/2022 7:[address] [facility] Eosinophils Absolute 0.01 0 - 0.47 x10E9/L 04/15/2022 7:[address] [facility] Basophils Absolute 0.01 0 - 0.08 x10E9/L 04/15/2022 7:[address] [facility] Immature Granulocytes Absolute 0.03 0.00 - 0.06 x10E9/L 04/15/2022 7:[address] [facility] nRBC Auto 0 /100 WBC 04/15/2022 7:[address] [facility] Blood BLOOD SPECIMEN / Unknown Venipuncture / Unknown 04/15/2022 6:59 AM CDT 04/15/2022 7:06 AM CDT Cindy Beaulieu FRENCH TEACHER-CREDIT CONTROLLER LAB - HEMATOLOGY ORDERABLES Performing Organization Address City/State/[facility] Co de Phone Number [facility] [address] [place] [address] * (ABNORMAL) BASIC METABOLIC PANEL (CALCIUM TOTAL) (04/15/2022 6:59 AM CDT) Only the most recent of3 resultswithin the time period is included. Glucose 121(H) 70 - 105 mg/dL 04/15/2022 7:21 AM [facility] Sodium 138 136 - 145 mmol/L 04/15/2022 7:21 AM [facility] Potassium 4.3 3.5 - 5.1 mmol/L 04/15/2022 7:21 AM [facility] Chloride 104 98 - 107 mmol/L 04/15/2022 7:21 AM [facility] CO2 23 23 - 31 mmol/L 04/15/2022 7:21 AM [facility] Calcium 8.8 8.4 - 10.4 mg/dL 04/15/2022 7:21 AM [facility] Anion Gap 11 8 - 18 mmol/L 04/15/2022 7:21 AM [facility] BUN 56(H) 9.8 - 20.1 mg/dL 04/15/2022 7:21 AM [facility] Creatinine 1.81(H) 0.57 - 1.11 mg/dL 04/15/2022 7:[address] [facility] eGFR by CKD-EPI 28(L) >=90 mL/min/1.7 3 m2 04/15/2022 7:[address] [facility] Blood BLOOD SPECIMEN / Unknown Venipuncture / Unknown 04/15/2022 6:59 AM CDT 04/15/2022 7:06 AM CDT Cindy Brittnee FRENCH TEACHER-CREDIT CONTROLLER LAB - CHEMISTRY ORDERABLES [facility] [address] [place] [address] * XR THORACIC SPINE 2VW (03/01/2022 2:49 PM CDT) Anatomical Region Laterality Modality Spine Radiographic Roxanne ging 03/01/2022 3:11 PM CDT Impressions 03/01/2022 3:12 PM CDT Spinal canal electrodes *Reading Radiologist: Cyndee Davis on 03/01/2022 at 3:12 PM Narrative 03/01/2022 3:12 PM CDT Thoracic spine, 2 views DATE: 03/01/2022. INDICATION: Spinal neurostimulator insertion. FINDINGS: Paired electrodes end in the spinal canal at approximately the T7 level. There is midthoracic chronic degenerative disc disease. No fracture or subluxation. Procedure Note Cyndee Davis MD - 03/01/2022 Thoracic spine, 2 views DATE: 03/01/2022. INDICATION: Spinal neurostimulator insertion. FINDINGS: Paired electrodes end in the spinal canal at approximately the T7 level. There is midthoracic chronic degenerative disc disease. No fracture or subluxation. IMPRESSION Spinal canal electrodes *Reading Radiologist: Cyndee Davis on 03/01/2022 at 3:12 PM William Ochoa MD DIAGNOSTIC IMAGI NG ORDERABLES * (ABNORMAL) HGB HCT PANEL (04/29/2017 4:13 AM CDT) Only the most recent of5 resultswithin the time period is included. Hemoglobin 10.6(L) 12.0 - 15.6 gm/dL 04/29/2017 4:54 AM CDT [facility] Hematocrit 31.9(L) 35.9 - 45.5 % 04/29/2017 4:54 AM CDT [facility] Blood BLOOD SPECIMEN / Unknown Venipuncture / Unknown 04/29/2017 4:13 AM CDT 04/29/2017 4:27 AM CDT Grant Pink MD LAB - HEMATOLOGY ORD ERABLES Performing Organization Address City/[facility]/ZIP Co de Phone Number [facility] [address] [place] [address] * (ABNORMAL) CULTURE MSSA/MRSA (04/14/2017 3:36 PM CDT) Only the most recent of3 resultswithin the time period is included. Pathologist [facility] Culture Negative for methicillin-resist ant Staphylococcus aureus (MRSA) FELIPA 04/16/2017 8:29 AM CDT [facility] Culture Growth of Staphylococcus aureus methicillin-suscep tible (MSSA)(A) FELIPA 04/16/2017 8:29 AM CDT [facility] Microbiology SPECIMEN FROM NASAL FOSSAE / Unknown 04/14/2017 3:36 PM CDT 04/14/2017 3:35 PM CDT Grant Pink MD LAB - MICROBIOLOGY O RDERABLES Performing Organization Address City/[facility]/ZIP Co de Phone Number [facility] [address] [place] [address] [phone] * EKG 12-LEAD (04/14/2017 1:37 PM CDT) Only the most recent of2 resultswithin the time period is included. Ventricular Rate 81 BPM [facility] Atrial Rate 81 BPM [facility] P-R Interval 150 ms [facility] QRS Duration ms 150 ms [facility] Q-T Interval ms 416 ms [facility] QTC Calculation (Bezet) 483 ms [facility] Calculated P [place] 44 degrees [facility] Calculated R [place] -19 degrees [facility] Calculated T [place] 139 degrees [facility] Interpretation EKG Sinus rhythm with Premature atrial complexes Possible Left atrial enlargement Left bundle branch block Abnormal ECG When compared with ECG of 08-JUL-2016 09:22, Premature atrial complexes are now Present Confirmed by VICENTA BOLANOS MD ([id number]) on 04/15/2017 10:16:16 AM DP MUSE 04/14/2017 1:37 PM CDT 04/15/2017 10:16 AM CDT Grant Pink MD ECG ORDERABLES [facility] MUSE * XR KNEE 3 VW LEFT (01/06/2017 2:43 PM CDT) Anatomical Region Laterality Modality Lower Extremity Computed Radiogr aphy Narrative 01/06/2017 4:27 PM CDT Kasey Puente RT(R) 01/06/2017 4:27 PM See progress notes for results Yariel Alvarado PA-C DIAGNOSTIC IMAGING ORDERABLES * CARDIAC ECHOCARDIOGRAM COMPLETE ORDER (11/30/2016 2:31 PM LIQUID SUGAR MELTER) Narrative 11/30/2016 2:31 PM [facility]QU[facility] SUGAR MELTER Ordered by an unspecified provider. Scanned Document ECHO ORDERABLES * CARDIAC EKG ORDER (11/30/2016 2:30 PM LIQUID SUGAR MELTER) Narrative 11/30/2016 2:30 PM [facility]QU[facility] SUGAR MELTER Ordered by an unspecified provider. Scanned Document CARDIAC SERVICES ORD ERABLES * CARDIAC PROCEDURE ORDER (11/30/2016 2:30 PM LIQUID SUGAR MELTER) Narrative 11/30/2016 2:30 PM LIQUID SUGAR MELTER Ordered by an unspecified provider. Scanned Document CARDIAC SERVICES ORD ERABLES * (ABNORMAL) COMPREHENSIVE METABOLIC PANEL (11/12/2016 10:39 AM LIQUID SUGAR MELTER) Only the most recent of2 resultswithin the time period is included. Glucose 122(H) 74 - 106 mg/dL 11/12/2016 12:00 PM [facility] Sodium 138 136 - 145 mmol/L 11/12/2016 12:00 PM [facility] Potassium 3.7 3.5 - 5.1 mmol/L 11/12/2016 12:00 PM [facility] Chloride 103 98 - 107 mmol/L 11/12/2016 12:00 PM [facility] CO2 28 22 - 31 mmol/L 11/12/2016 12:00 PM [facility] Calcium 9.1 8.5 - 10.1 mg/dL 11/12/2016 12:00 PM [facility] Anion Gap 7(L) 8 - 16 mmol/L 11/12/2016 12:00 PM [facility] BUN 40(H) 7 - 21 mg/dL 11/12/2016 12:00 PM [facility] Creatinine 1.30 0.50 - 1.30 mg/dL 11/12/2016 12:00 PM [facility] Alkaline Phosphatase 65 38 - 126 U/L 11/12/2016 12:00 PM [facility] ALT 20 13 - 61 U/L 11/12/2016 12:00 PM [facility] AST 15 5 - 40 U/L 11/12/2016 12:00 PM [facility] Protein Total 7.5 6.4 - 8.2 gm/dL 11/12/2016 12:00 PM [facility] Albumin 3.6 3.4 - 5.0 gm/dL 11/12/2016 12:00 PM [facility] Bilirubin Total 0.5 0.2 - 1.0 mg/dL 11/12/2016 12:00 PM [facility] eGFR by MDRD 40 mL/min/1.7 3m2 11/12/2016 12:00 PM [facility] eGFR by MDRD 49 mL/min/1.7 3m2 11/12/2016 12:00 PM [facility] Blood BLOOD SPECIMEN / Unknown 11/12/2016 10:39 AM [facility] MEL[facility] 11/12/2016 11:39 AM [facility] Grant Pink MD LAB - CHEMISTRY GIL ANGELO [facility] [address] [place] [address] Care Teams Cement Mason Helper Relationship Specialty Start Date End Date Jesus Frost DO [address] [place] [id number] PCP - General Internal Medicine 03/01/22
== END 2024-12-13 15:59 | disposition home or self-care (01) ==
PROVIDERS: PCP Nurse Practitioner Family; Visit Provider Internal Medicine Cardiovascular Disease
DX: I50.22 Chronic systolic (congestive) heart failure (principal)
CPT/HCPCS: 93306; C8929

== ENCOUNTER 2025-08-05 13:38 | Outpatient (CLI) | payer MEDICARE, SELFPAY ==
--- NOTE | 2025-08-05 13:42 | ECHO_ITS ---
Patient Info Name: Shellie Leal Age: 80 years : 1945 Gender: Female Ht: 6 in Wt: 220 lbs BSA: 0.85 m2 HR: 78 bpm BP: 122 / 78 mmHg Heart Rhythm: Sinus Rhythm Technical Quality: Fair Exam Date: 08/05/2025 1:56 PM Patient Status: O Admit Date: 08/05/2025 Exam Type: CA echo doppler color flow Complete two-dimensional, color flow and Doppler transthoracic echocardiogram is performed. Staff Ordering Physician: Marylu Portillo Attending Provider: Anurag Conde DO Summary 1. Complete two-dimensional, color flow and Doppler transthoracic echocardiogram is performed. 2. Left ventricular chamber dimension is normal. 3. Left ventricular systolic function is preserved, estimated at 50-55. 4. The left ventricular diastolic function is grade I diastolic dysfunction. 5. E/e' 15 is elevated. 6. Left atrial chamber dimension is mildly enlarged. 7. There is trace tricuspid valve regurgitation. 8. No pulmonary hypertension, estimated pulmonary arterial systolic pressure is 27 mmHg. Left Ventricle E/e' 15 is elevated. Left ventricular chamber dimension is normal. Left ventricular systolic function is preserved, estimated at 50-55. The left ventricular diastolic function is grade I diastolic dysfunction. Right Ventricle Right ventricular chamber dimension is normal. Right ventricular systolic function is normal and with normal TAPSE 1.8 cm. Left Atria Left atrial chamber dimension is mildly enlarged. Right Atria Right atrial chamber dimension is normal. Aortic Valve The aortic valve is trileaflet. There is no aortic valve sclerosis. There is no aortic valve stenosis. There is no aortic valve regurgitation. Pulmonic Valve There is no pulmonic regurgitation. Mitral Valve There is no mitral valve stenosis. There is no mitral valve regurgitation. Tricuspid Valve There is trace tricuspid valve regurgitation. No pulmonary hypertension, estimated pulmonary arterial systolic pressure is 27 mmHg. Pericardium/Pleural There is no pericardial effusion. Inferior Vena Cava Normal inferior vena cava with >50% collapse upon inspiration consistent with normal right atrial pressure, 5 mmHg. Aorta The aortic root size at the sinus of Valsalva is normal. Left Ventricular Outflow Tract Name Value Normal LVOT 2D LVOT Diameter 1.9 cm LVOT Doppler LVOT Peak Velocity 72 cm/s LVOT Peak Gradient 2 mmHg LVOT Mean Gradient 1 mmHg LVOT VTI 16 cm LVOT VTI/AV VTI Ratio 0.5 LVOT Stroke Volume 47 ml LVOT CO 3.0 l/min LVOT CI 3.6 l/min/m2 Pulmonic Valve Name Value Normal RVOT Doppler RVOT Peak Velocity 109 cm/s RVOT Peak Gradient 5 mmHg PV Doppler PV Peak Velocity 123 cm/s PV Peak Gradient 6 mmHg Mitral Valve Name Value Normal MV Diastolic Function MV E Peak Velocity 70 cm/s MV A Peak Velocity 119 cm/s MV E/A 0.6 MV Decel Time (PW) 209 ms MV Annular TDI MV E/e' (Septal) 15.3 MV E/e' (Lateral) 16.0 MV E/e' (Average) 15.7 Tricuspid Valve Name Value Normal TV Regurgitation Doppler TR Peak Velocity 232 cm/s TR Peak Gradient 22 mmHg Estimated PAP/RSVP RA Pressure 5 mmHg <=5 PA Systolic Pressure 27 mmHg <36 RV Systolic Pressure 27 mmHg <36 TV Annular TDI TV Lateral Shayla s' Velocity 9.1 cm/s >=9.5 Aorta Name Value Normal Ascending Aorta Ao Root Diameter (MM) 3.0 cm Ao Root Diam Index (MM) 3.5 cm/m2 Aortic Valve Name Value Normal AV Doppler AV Peak Velocity 167 cm/s AV Peak Gradient 11 mmHg AV Mean Gradient 5 mmHg AV VTI 34 cm AV Area (Cont Eq VTI) 1.4 cm2 >=3.0 AV Area (Cont Eq Emerson) 1.3 cm2 AV DI (Emerson) 0.43 AV Regurgitation 2D LVOT Area 2.9 cm2 Ventricles Name Value Normal LV Dimensions 2D/MM IVS Diastolic Thickness (2D) 0.8 cm 0.6-1.0 LVID Diastole (2D) 5.1 cm 3.8-5.2 LVIW Diastolic Thickness (2D) 0.8 cm 0.6-0.9 LVID Systole (2D) 3.6 cm 2.2-3.5 LVOT Diameter 1.9 cm LV Mass (2D Cubed) 144.49 g 67.00-162.00 LV Mass Index (2D Cubed) 170 g/m2 43-95 Relative Wall Thickness (2D) 0.32 <=0.42 LV Fractional Shortening/Ejection Fraction 2D/MM LV Fractional Shortening (2D) 29 % 27-45 LV EF (2D Teichholz) 55 % LV Diastolic Volume (4C MOD) 94 ml LV EF (4C MOD) 54 % LV Diastolic Volume (2C MOD) 92 ml LV EF (2C MOD) 54 % LV Diastolic Volume (BP MOD) 94 ml 46-106 LV Diastolic Volume Index (BP MOD) 111 ml/m2 29-61 LV Systolic Volume (BP MOD) 43 ml 14-42 LV Systolic Volume Index (BP MOD) 51 ml/m2 8-24 LV EF (BP MOD) 54 % 54-74 LV Diastolic Length (4C) 7.9 cm LV Systolic Length (4C) 6.9 cm LV Stroke Volume (4C MOD) 50 ml Atria Name Value Normal LA Dimensions LA Dimension (MM) 3.7 cm 2.7-3.8 LA Volume (4C A-L) 68 ml LA Volume (BP A-L) 72 ml RA Dimensions RA Area (4C) 8.4 cm2 <=18.0 Report Signatures
--- OUTSIDE RECORDS SUMMARY | 2025-08-05 15:16 | XMS_ITS | Encounter Summary ---
Author Organization [facility] Facility Care Team Providers Care Gas Maker Helper Name Role Phone Kory Hart MD Primary Care Provider [phone] Jesus Frost DO Primary Care Provider [phone] Encounter Details Date Type Department Care Team (Latest Contact Info) Description 09/01/2016 Orders Only [facility] CLINCONV Provider, MD Karol [address] [place] [address] Social History Tobacco Use Types Packs/Day Years Used Date Smoking Tobacco: Never Assessed Comments Unknown Sex and Gender Information Value Date Recorded Sex Assigned at Not on file Legal Sex Female 1:09 AM MOSQUITO SPRAYER Gender Identity Not on file Sexual Orientation Not on file documented as of this encounter Plan of Treatment Not on file documented as of this encounter Procedures Procedure Name Priority Date/Time Associated Diagnosis Comments PROCEDURE - RESULT 09/01/2016 12 :00 AM MOSQUITO SPRAYER documented in this encounter Results * PROCEDURE - RESULT (09/01/2016 12:00 AM MOSQUITO SPRAYER) Narrative 09/01/2016 12:00 AM MOSQUITO SPRAYER Ordered by an unspecified provider. us Historical Provider Final Res ult documented in this encounter Visit Diagnoses Not on filedocumented in this encounter Additional Health Concerns Infection Onset Date Last Indicated Resolved Time MRSA Comment:hx 2012- after back surgery to wound- resolved, 11/21/2013 11/20/2013 05/27/2021 5:00 AM C DT documented as of this encounter Care Teams Gas Maker Helper Relationship Specialty Start Date End Date Kory Hart MD PCP - General 11/28/18 06/21/19 Jesus Frost DO PCP - General 06/22/19 documented as of this encounter
--- OUTSIDE RECORDS SUMMARY | 2025-08-05 15:16 | XMS_ITS | Clinical Summary ---
Author Organization [facility] [place] Address [address] [place] [address] Care Team Providers Care Pouncing Machine Operator Name Role Phone Jesus Frost DO Primary Care Provider [phone] Allergies Active Allergy Reactions Criticality Noted Date Comments Sulfa (Sulfonamide Antibiotics) Rash Medium 06/22/2016 In her early 20's. Rash and lots of pain Medications bumetanide (BUMEX) 1 mg tablet Take 2 tablets (2 mg total) by mouth daily 7 Active docusate sodium (COLACE) 100 mg capsule Take 1 capsule (100 mg total) by mouth daily Active gabapentin (NEURONTIN) 300 mg capsule Take 1 capsule (300 mg total) by mouth 2 (two) times a day 6 Active glucosamine-cho ndroitin 500-400 mg capsule Take 2 capsules by mouth daily Active tolterodine LA (DETROL LA) 2 mg 24 hr capsule Take 1 capsule (2 mg total) by mouth 2 (two) times a day 6 Active rosuvastatin (CRESTOR) 10 mg tablet Take 1 tablet (10 mg total) by mouth daily 8 Active omeprazole (PriLOSEC) 20 mg capsule Take 1 capsule (20 mg total) by mouth daily 6 Active omega-3 fatty acids (LOVAZA) 1 gram capsule Take 2 capsules (2,000 mg total) by mouth daily Active sacubitriL-vals yao (ENTRESTO) 49-51 mg tablet Take 1 tablet by mouth 2 (two) times a day Active carvediloL (COREG) 3.125 mg tablet Take 1 tablet (3.125 mg total) by mouth 2 (two) times a day with meals 3 Active bexagliflozin (Brenzavvy) 20 mg tabletIndicatio ns:Stage 3b chronic kidney disease (HCC) Take 20 mg by mouth diesel engine fitter before breakfast 90 tablet 3 5 02/28/20 26 Active Active Problems Problem Noted Date Diagnosed Date Severe obesity 08/29/2024 Body mass index 40.0-44.9, adult (CMS/HCC) 08/29 ROBERT (obstructive sleep apnea) 05/16/2023 Assessment & Plan (08/31/2023 11:56 AM REGIONAL CRA): Patient continue to wear her CPAP at 8 cm water pressure while sleeping. Her DME is [facility]. Assessment & Plan (05/16/2023 3:08 PM CDT): I have sent an order over to [facility] to assure that the patient's CPAP is set at 8 cm water pressure. Cardiorenal syndrome 05/20/2020 Localized edema 05/20/2020 S/P insertion of spinal cord stimulator 07/10/20 19 OAMR (acute kidney injury) 07/10/2019 Cellulitis 07/10/2019 Cellulitis [...] Encounters Date Type Department Care Team Description 07/08/2025 Telephone [facility] [place] [address] [place] [address] Karen Martin MA [place] Card 05/16/2025 Telephone [facility] [place] [address] [place] [address] Michelle Zendejas MA Chart Prep (Call made to the patient, reminder) from Last 3 Months Immunizations Immunization Administration [...] have a drink containing alc ohol? Never 02/27/2025 Average Number of Drinks Not on file 025 Frequency of Binge Drinking Not on file 02/08 Comments Unknown Sex and Gender Information Value Date Recorded Sex Assigned at Not on file Legal Sex Female 1:09 AM REGIONAL CRA Gender Identity Not on file Sexual Orientation Not on file Obstetrics History Last Filed Vital Signs Vital Sign Reading Time Taken Comments Blood Pressure 118/75 02/27/2025 1:12 PM CDT Pulse 86 02/27/2025 1:12 PM CDT Temperature 36.1 C (97 F) 08/29/2024 2:55 PM REGIONAL CRA Respiratory Rate 18 08/31/2023 10:42 AM REGIONAL CRA Oxygen Saturation 94% 08/31/2023 10:42 AM [facility] CRA Inhaled Oxygen Concentration - - Weight 106.1 kg (234 lb) 02/27/2025 1:12 PM CDT Height 161.3 cm (5' 3.5) 02/27/2025 1:12 PM CDT Body Mass Index 40.8 02/27/2025 1:12 PM CDT Plan of Treatment Health Maintenance Due Date Last Done Comments Depression Screening 1945 Fall Risk Assessment 1945 DTaP/Tdap/Td Vaccine (1 - Tdap) 01/09/1956 Hepatitis B Screening 1963 Pneumococcal vaccine 65+ (1 of 1 - PCV) 1995 Zoster Vaccine (1 of 2) 1995 Well Visit 65+ 2010 Influenza Vaccine (#1) 2025 07/21/2018, 2016 Osteoporosis Screening-Bone Density Scan 01/22/2026 01/23/2024, 09/18/2013 Procedures Procedure Name Priority Date/Time Associated Diagnosis Comments DEXA AXIAL SKELETON BONE DENSITY 1 OR MORE SITES Routine 09/18/2013 1:35 PM [facility] from Last 3 Months or Most Recently Relevant to Health Maintenance Results * Dexa Axial Skeleton Bone Density 1 or 2 Site (09/18/2013 1:35 PM [facility]) Anatomical Region Laterality Modality Body N/A Radiographic Roxanne ging 09/18/2013 1:35 PM [facility] Impressions 09/18/2013 2:25 PM [facility] Normal bone mineral density THIS IS AN ELECTRONICALLY VERIFIED REPORT 09/18/2013 2:21 PM: Juan R Tao M.D. Juan R Tao M.D. MD: 02:21 PM 02:21 PM [facility] [EOD] Narrative 09/18/2013 2:25 PM [facility] EXAMINATION: Bone Density Study (DEXA) HISTORY: Post [...] Tao M.D. MD: 02:21 PM 02:21 PM [facility] [EOD] us Reji Manriquez AUTHORIZATION REPRESENTATIVE IMG DXA PROCEDURES Final Res ult from Last 3 Months or Most Recently Relevant to Health Maintenance Insurance [employer] MEDICARE GOLD Care Teams Pouncing Machine Operator Relationship Specialty Start Date End Date Jesus Frost DO PCP - General 06/22/19
--- OUTSIDE RECORDS SUMMARY | 2025-08-05 15:16 | XMS_ITS | Encounter Summary ---
Author Organization [facility] Facility Care Team Providers Care Fugitive Detective Name Role Phone Kory Hart MD Primary Care Provider [phone] Jesus Frost DO Primary Care Provider [phone] Encounter Details Date Type Department Care Team (Latest Contact Info) Description 08/09/2016 Orders Only [facility]G CLINCONV Provider, MD Karol [address] [place] [address] Social History Tobacco Use Types Packs/Day Years Used Date Smoking Tobacco: Never Assessed Comments Unknown Sex and Gender Information Value Date Recorded Sex Assigned at Not on file Legal Sex Female 1:09 AM MIMEOGRAPHER Gender Identity Not on file Sexual Orientation [...] documented as of this encounter Care Teams Fugitive Detective Relationship Specialty Start Date End Date Kory Hart MD PCP - General 11/28/18 06/21/19 Jesus Frost DO PCP - General 06/22/19 documented as of this encounter
--- OUTSIDE RECORDS SUMMARY | 2025-08-05 15:16 | XMS_ITS | Encounter Summary ---
Author Organization [facility] Facility Care Team Providers Care Septic Cleaner Name Role Phone Kory Hart MD Primary Care Provider [phone] Jesus Frost DO Primary Care Provider [phone] Encounter Details Date Type Department Care Team (Latest Contact Info) Description 05/05/2016 Orders Only [facility] CLINCONV Provider, MD Karol [address] [place] [address] Social History Tobacco Use Types Packs/Day Years Used Date Smoking Tobacco: Never Assessed Comments Unknown Sex and Gender Information Value Date Recorded Sex Assigned at Not on file Legal Sex Female 1:09 AM GUSSET RIPPER Gender Identity Not on file Sexual Orientation [...] documented as of this encounter Care Teams Septic Cleaner Relationship Specialty Start Date End Date Kory Hart MD PCP - General 11/28/18 06/21/19 Jesus Frost DO PCP - General 06/22/19 documented as of this encounter
--- OUTSIDE RECORDS SUMMARY | 2025-08-05 15:16 | XMS_ITS | Encounter Summary ---
Author Organization [facility] Facility Care Team Providers Care Plate Fitter Name Role Phone Kory Hart MD Primary Care Provider [phone] Jesus Frost DO Primary Care Provider [phone] Encounter Details Date Type Department Care Team (Latest Contact Info) Description 07/08/2016 Orders Only MMG CLINCONV Provider, MD Karol [address] [place] [address] Social History Tobacco Use Types Packs/Day Years Used Date Smoking Tobacco: Never Assessed Comments Unknown Sex and Gender Information Value Date Recorded Sex Assigned at Not on file Legal Sex Female 1:09 AM DETAILER FURNITURE Gender Identity Not on file Sexual Orientation [...] documented as of this encounter Care Teams Plate Fitter Relationship Specialty Start Date End Date Kory Hart MD PCP - General 11/28/18 06/21/19 Jesus Frost DO PCP - General 06/22/19 documented as of this encounter
--- OUTSIDE RECORDS SUMMARY | 2025-08-05 15:16 | XMS_ITS | Clinical Summary ---
Author Organization [facility] Address [address] [place] [address] Care Team Providers Care Public Relations Supervisor Name Role Phone Jesus Frost Primary Care Provider [phone] Source Comments [facility],non-owned Affiliates and Associated Physician Practices is amultiple site organization consisting of ambulatory clinics and hospital sitesin [place], [place], [place]. This disclosure is being madepursuant to the Care Everywhere program and may not contain all information available regarding this patient. Last updated 18.[facility] Allergies Active Allergy Reactions Criticality Noted Date Comments Sulfa Drugs Rash Medium 06/22/2016 In her early 20's. Rash and lots of pain In her early 20's. Rash and lots of pain Medications * Be aware that medications may not be up to date on this document. Alwaysverify current medications with the patient. omeprazole (PRILOSEC) 20 MG capsule Take 1 Cap by mouth daily before breakfast Reported on 01/06/2017 3 6 Active Magnesium 300 MG Take 300 mg [...] 2 times daily Reported on 01/06/2017 Active [place]-3 Fatty Acids (FISH OIL) 1000 MG capsule Take 2,000 mg by mouth once daily Reported on 01/06/2017 Active multivitamin daily (THERAGRAN) tablet Take 1 Tab by mouth daily with food Reported on 01/06/2017 Active GELATIN PO Take 500 mg by mouth once daily Reported on 01/06/2017 Active Calcium Carbonate-Vitam in D (CALCIUM-D) 600-400 MG-UNIT Take by mouth 2 times daily Reported on 01/06/2017 Active docusate sodium (COLACE) 100 MG capsule Take 100 mg by mouth 2 times daily Active aspirin EC (ECOTRIN) 81 MG tablet Take 81 mg by mouth once daily 1 Active carvedilol (COREG) 3.125 MG tablet Take 1 tablet by mouth 2 times daily 1 Active diazePAM (VALIUM) 5 MG tablet TAKE ONE TABLET BY MOUTH 1 HOUR PRIOR TO PROCEDURE 1 Active gabapentin (NEURONTIN) 300 MG capsule Take 300 mg by mouth 3 times daily for 30 days 1 Active glucosamine-cho ndroitin 500-400 MG capsule Take 2 capsules by mouth once daily Active HYDROcodone-agata taminophen (NORCO) 5-325 MG tablet Take 1 tablet by mouth 3 times daily as needed 2 Active rosuvastatin (CRESTOR) 10 MG tablet Take 10 mg by mouth once daily 2 Active sacubitril-vals yao (ENTRESTO) 49-51 MG tablet Take 1 tablet by mouth 2 times daily 1 Active spironolactone (ALDACTONE) 25 MG tablet Take 25 mg by mouth once daily 2 Active carvedilol (Coreg) 6.25 MG tablet Take 6.25 mg by mouth every 12 hours 2 Active Active Problems Problem Noted Date Diagnosed Date S/P insertion of spinal cord stimulator Immunizations Immunization Administration Dates Next Due INFLUENZA VACCINE, HIGH-DOSE [...] of Binge Drinking Not on file 04/2022 Comments No Sex and Gender Information Value Date Recorded Sex Assigned at Not on file Legal Sex Female 3:10 PM CDT Gender Identity Not on file [...] 11:33 AM CDT Height 161.3 cm (5' 3.5) 06/07/2022 11:33 AM CD T Body Mass [...] yrs (1 - 1-dose 75+ series) 01/09/2020 DEPRESSION SCREENING 10/10/2024 COVID-19 VACCINE (1 - 2023-2 5 season) 2025 INFLUENZA VACCINE (#1) 2025 , 11/26/2016 HEPATITIS B VACCINE Aged Out No longe r eligible based on patient's age to complete this topic HIB VACCINE Aged Out No longer eligi ble based on patient's age to complete this topic HPV VACCINE Aged Out No longer eligi ble based on patient's age to complete this topic MENINGOCOCCAL (Group B) VACCINE SHARED DECISION-MAKING Aged Out No longer eligible based on patient's age to complete this topic MENINGOCOCCAL GROUPS A/C/Y/W VACCINE Aged Out No longer eligible b ased on patient's age to complete this topic Medical Devices Implanted Type Area Jewelry Sales Coordinator Device Identifier Shelf Expiration Date Model / Serial / Lot Cmnt Bone Co Hv 40gm Implanted:Qty: 1 on 11/25/2016 by Grant Pink MD at [facility] Left: Knee [employer] [id number] 04/08/2018 [id number] / / [id number] 28mm X 8mm Standard Patella Implanted:Qty: 1 on 11/25/2016 by Grant Pink MD at [facility] Left: Knee 08/08/2019 [id number] / / [id number] Cmnt Bone Cblt G-Hv 40gm Hvisc Gnta Strl Implanted:Qty: 1 on 11/25/2016 by Grant Pink MD at [facility] Left: Knee [employer] [id number] / / Cmnt Bone Co Hv Lg 40gm Hvisc Strl Implanted:Qty: 1 on 11/25/2016 by Grant Pink MD at [facility] Left: Knee [employer] [id number] / / Cmnt Bone Co Hv 40gm Implanted:Qty: 1 on 04/27/2017 by Grant Pink MD at [facility] Right: Knee [employer] 04/08/2018 [id number] / / [id number] Cmpnt Fem Kn Rt Cr Cmnt Prm Vngrd Intlk Implanted:Qty: 1 on 04/27/2017 by Grant Pink MD at [facility] Right: Knee [employer] 03/22/2027 [id number] / / [id number] Cmpnt Ptlr 28mm 1 Pg Wire Ascnt Arcm Kn Implanted:Qty: 1 on 04/27/2017 by Grant Pink MD at [facility] Right: Knee [employer] 02/28/2020 [id number] / / [id number] Tray Tib 75mm Kn Cocr I Beam Implanted:Qty: 1 on 04/27/2017 by Grant Pink MD at [facility] Right: Knee [employer] 11/30/2026 [id number] / / [id number] Brng [id number] Vngrd Arcm Kn Ant Stab Implanted:Qty: 1 on 04/27/2017 by Grant Pink MD at [facility] Right: Knee [employer] 03/18/2022 [id number] / / [id number] Insurance TNA AETNA MEDICARE ADV Advance Directives Documents on File Type Date Recorded Patient Biostatistics Manager Expl anation Adv Directive/Living Will/POA 11/30/2016 2:30 PM Adv Directive/Living Will/POA 11/25/2016 9:31 AM POWER OF NITROGLYCERIN NEUTRALIZER * Full Code (Latest Code Status on File) Date Activated Date Inactivated Comments 04/27/2017 3:56 PM 04/29/2017 5:04 PM * Full Code Date Activated Date Inactivated Comments 11/25/2016 2:01 PM 11/27/2016 3:00 PM Care Teams Public Relations Supervisor Relationship Specialty Start Date End Date Jesus Frost DO [address] [place] [address] PCP - General Internal Medicine 03/01/22
--- OUTSIDE RECORDS SUMMARY | 2025-08-05 15:16 | XMS_ITS | Encounter Summary ---
Author Organization [facility] Facility Care Team Providers Care Rock Drill Operator Name Role Phone Kory Hart MD Primary Care Provider [phone] Jesus Frost DO Primary Care Provider [phone] Encounter Details Date Type Department Care Team (Latest Contact Info) Description 08/19/2016 Orders Only [facility] Provider, MD Karol [address] [place], [place] [id number] Social History Tobacco Use Types Packs/Day Years Used Date Smoking Tobacco: Never Assessed Comments Unknown Sex and Gender Information Value Date Recorded Sex Assigned at Not on file Legal Sex Female 1:09 AM FLAT FOLDING MACHINE OPERATOR Gender Identity Not on file Sexual Orientation Not on file documented as of this encounter Plan of Treatment Not on file documented as of this encounter Procedures Procedure Name Priority Date/Time Associated Diagnosis Comments CARDIOLOGY REPORT 08/25/2016 12: 00 AM FLAT FOLDING MACHINE OPERATOR documented in this encounter Results * CARDIOLOGY REPORT (08/25/2016 12:00 AM FLAT FOLDING MACHINE OPERATOR) Anatomical Region Laterality Modality Other Narrative 08/25/2016 12:00 AM FLAT FOLDING MACHINE OPERATOR Ordered by an unspecified provider. us Historical Provider [facility] YOHAN LEDESMA Final Result documented in this encounter Visit Diagnoses Not on filedocumented in this encounter Additional Health Concerns Infection Onset Date Last Indicated Resolved Time MRSA Comment:hx 2012- after back surgery to wound- resolved, 11/21/2013 11/20/2013 05/27/2021 5:00 AM C DT documented as of this encounter Care Teams Rock Drill Operator Relationship Specialty Start Date End Date Kory Hart MD PCP - General 11/28/18 06/21/19 Jesus Frost DO PCP - General 06/22/19 documented as of this encounter
--- OUTSIDE RECORDS SUMMARY | 2025-08-05 15:16 | XMS_ITS | Encounter Summary ---
Author Organization [facility] Facility Care Team Providers Care Nurse General Duty Name Role Phone Kory Hart MD Primary Care Provider [phone] Jesus Frost DO Primary Care Provider [phone] Encounter Details Date Type Department Care Team (Latest Contact Info) Description 08/26/2016 Orders Only [facility]INCON[facility] Provider, MD Karol [address] [place] [id number] Social History Tobacco Use Types Packs/Day Years Used Date Smoking Tobacco: Never Assessed Comments Unknown Sex and Gender Information Value Date Recorded Sex Assigned at Not on file Legal Sex Female 1:09 AM ALLERGY AND IMMUNOLOGY SPECIALIST Gender Identity Not on file Sexual Orientation Not on file documented as of this encounter Plan of Treatment Not on file documented as of this encounter Procedures Procedure Name Priority Date/Time Associated Diagnosis Comments SCAN - LABS 08/31/2016 12:00 AM ALLERGY AND IMMUNOLOGY SPECIALIST CARDIOLOGY REPORT 08/31/2016 12: 00 AM ALLERGY AND IMMUNOLOGY SPECIALIST CARDIOLOGY REPORT 08/31/2016 12: 00 AM ALLERGY AND IMMUNOLOGY SPECIALIST documented in this encounter Results * SCAN - LABS (08/31/2016 12:00 AM ALLERGY AND IMMUNOLOGY SPECIALIST) Narrative 08/31/2016 12:00 AM ALLERGY AND IMMUNOLOGY SPECIALIST Ordered by an unspecified provider. us Historical Provider Final Res ult * CARDIOLOGY REPORT (08/31/2016 12:00 AM ALLERGY AND IMMUNOLOGY SPECIALIST) Anatomical Region Laterality Modality Other Narrative 08/31/2016 12:00 AM ALLERGY AND IMMUNOLOGY SPECIALIST Ordered by an unspecified provider. Historical Provider [facility] PROCE DURES Final Result * CARDIOLOGY REPORT (08/31/2016 12:00 AM ALLERGY AND IMMUNOLOGY SPECIALIST) Anatomical Region Laterality Modality Other Narrative 08/31/2016 12:00 AM ALLERGY AND IMMUNOLOGY SPECIALIST Ordered by an unspecified provider. 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
== END 2025-08-05 13:39 | disposition home or self-care (01) ==
PROVIDERS: PCP Nurse Practitioner Family; Visit Provider Internal Medicine Cardiovascular Disease
DX: I50.22 Chronic systolic (congestive) heart failure (principal)
CPT/HCPCS: 93306